=== PATIENT | male | born 1980 | race Caucasian/White ===

== ENCOUNTER 2016-05-28 23:00 | Inpatient (IN) | payer SELFPAY ==
[~2016-05-28] VITALS: Ht 172.7 cm; Wt 66.0 kg
[2016-05-29] VITALS (13 sets, daily range): BP systolic 94–148; BP diastolic 53–99
--- NOTE | 2016-05-29 00:10 | ED CLINICAL REPORT ---
Clinical Report - Physicians/Mid Levels [facility] [address] [place] [address] 05/28/2016 23:03 Patient: RAIZA OROZCO Time Seen: 2305. Arrived- By private vehicle. Historian- patient. HISTORY OF PRESENT ILLNESS Chief Complaint: VOMITING. This started past several days and is still present and worsening. It was abrupt in onset and has been constant but is not gone now. The patient has had nausea and diarrhea. He has had severe vomiting (clear or what he had drank/eaten). The vomiting has occurred numerous times. No black stools, bloody stools, constipation or known contact with a sick individual. The illness is described as moderate. Similar symptoms previously: Several times. Recent medical care: Not recently seen/assessed. REVIEW OF SYSTEMS No fever, chest pain, difficulty breathing or skin rash. All systems otherwise negative, except as recorded above. PAST HISTORY See nurses notes. Medications: None. Allergies: No Known Drug Allergy. SOCIAL HISTORY Smoker- current status unknown. Heavy alcohol use. No drug use. No recent travel. Is a local resident. ADDITIONAL NOTES The nursing notes have been reviewed. PHYSICAL EXAM Vital Signs: 05/28/2016 23:08 BP: 145/86. HR: 72. RR: 24. O2 saturation: 100%. Temp: 98.5 F. Oxygen saturation normal. Appearance: Alert. Oriented X3. Patient in mild distress. Eyes: Pupils equal, round and reactive to light. Eyes normal inspection. ENT: Ears normal. Nose normal. Pharynx normal. Neck: Normal inspection. Neck supple. CVS: Normal heart rate and rhythm. Heart sounds normal. Pulses normal. Respiratory: No respiratory distress. Breath sounds normal. No rales, rhonchi or wheezes. Abdomen: Soft and nontender. Bowel sounds normal. Skin: Skin warm and dry. Normal skin color. No rash. Normal skin turgor. Extremities: Extremities exhibit normal ROM. No lower extremity edema. Neuro: Oriented X 3. No motor deficit. No sensory deficit. (resting tremor with tongue fasciculations mild). LABS, X-RAYS, AND EKG EKG: No acute ischemia. Normal sinus rhythm. Rate: 81. Normal P waves. Normal NIA. Normal QRS complex. Normal axis. Normal ST and T waves. Prolonged QT (492). Prolonged QTc (571). The study has been interpreted contemporaneously. The study has been independently viewed by me. The EKG appears to be a good tracing. Laboratory Tests: CBC w Diff: (JUAN ALBERTO: 05/29/2016 05:25) ( WagRcvd 05/29/2016 06:20) IP Test Result Flag Units (Reference) WHITE BLOOD COUNT 3.1 L K/uL (4.5-11.5) RED BLOOD COUNT 4.85 M/uL (4.50-5.90) HEMOGLOBIN 15.8 gm/dL (13.5-17.5) HEMATOCRIT 46.1 % (41.0-53.0) MEAN CELL VOLUME 95 fL (80-100) MEAN CORPUSCULAR HGB 33 pg (26-34) MEAN CORPUSCULAR HGB CONC 34 g/dL (31-37) RED CELL DISTRIBUTION WIDTH 12.7 % (11.6-14.8) PLATELET COUNT 88 L K/uL (150-400) BMP: (JUAN ALBERTO: 05/29/2016 05:25) ( [facility] Final results Test Result Flag Units (Reference) GLUCOSE 96 mg/dL (70-110) BUN 6 L mg/dL (7-18) CREATININE 1.0 mg/dL (0.6-1.3) Estimated GFR >60 mL/min Estimated GFR- >60 mL/min Note: Persistent reduction over 3 months in eGFR<60 mL/min/1.73 m2 defines CKD. Patients with eGFR values>=60 mL/min/1.73 m2 may also have CKD if evidence ofpersistent proteinuria. Additional information may be foundat www.kidney.org. SODIUM 127 L mmol/L (136-145) POTASSIUM 2.4 *L mmol/L (3.5-5.1) CRITICAL RESULTS CALLEDCalled to LUCIANO 05/29/16 0602Were 2 patient identifiers used? YWas the result read back? Y CHLORIDE 86 L mmol/L (98-107) CARBON DIOXIDE 38 H mmol/L (21-32) CALCIUM 8.2 L mg/dL (8.5-10.1) MAGNESIUM 2.6 H mg/dL (1.8-2.4) PHOSPHORUS 4.2 mg/dL (2.5-4.9) TSH: (JUAN ALBERTO: 05/29/2016 00:01) ( [facility] 05/29/2016 01:20) Final results Test Result Flag Units (Reference) THYROID STIMULATING HORMONE 2.255 uIU/mL (0.34-3.74) UA-Culture if indicated: (JUAN ALBERTO: 05/28/2016 23:42) ( [facility] 05/29/2016 00:06) Final results Test Result Flag Units (Reference) URINE COLOR YELLOW URINE APPEARANCE SLIGHTLY HAZY URINE GLUCOSE NEGATIVE (NEGATIVE) URINE BILIRUBIN NEGATIVE (NEGATIVE) URINE BILIRUBIN ICTOTEST NEGATIVE (NEGATIVE) URINE KETONE 1+ (NEGATIVE) URINE SPECIFIC GRAVITY 1.025 (1.010-1.030) URINE PH 6.0 (5.0-8.0) URINE PROTEIN 2+ (NEGATIVE) URINE UROBILINOGEN 1.0 EU/dL (0.2-1.0) URINE NITRITE NEGATIVE (NEGATIVE) URINE BLOOD TRACE-INTACT (NEGATIVE) URINE LEUK ESTERASE NEGATIVE (NEGATIVE) URINE RBC 1-3 rbc/hpf (0-1) URINE WBC 0-1 wbc/hpf (0-1) URINE EPITHELIAL CELLS NONE SEEN EPI/hpf (0-5) URINE BACTERIA NONE SEEN (NONE SEEN) URINE COMMENT CULT NOT INDICATED HYALINE CAST: 10-15/LPFURINE CULTURES ARE SET-UP BASED ON THE FOLLOWING CRITERIA:POSITIVE NITRITEPOSITIVE LEUKOCYTE ESTERASEGREATER THAN 10 WHITE BLOOD CELLSMODERATE (2+) OR GREATER BACTERIA CBC w Diff: (JUAN ALBERTO: 05/28/2016 23:30) ( [facility] 05/28/2016 23:35) Final results Test Result Flag Units (Reference) WHITE BLOOD COUNT 4.3 L K/uL (4.5-11.5) RED BLOOD COUNT 5.39 M/uL (4.50-5.90) HEMOGLOBIN 17.5 gm/dL (13.5-17.5) HEMATOCRIT 50.6 % (41.0-53.0) MEAN CELL VOLUME 94 fL (80-100) MEAN CORPUSCULAR HGB 33 pg (26-34) MEAN CORPUSCULAR HGB CONC 35 g/dL (31-37) RED CELL DISTRIBUTION WIDTH 12.4 % (11.6-14.8) PLATELET COUNT 91 L K/uL (150-400) NEUTROPHIL % 76.3 H % (50-75) LYMPH % 7.4 L % (25-40) MONO % 15.9 H % (3-14) EOSINOPHIL % 0 % (0-4) BASOPHIL % 0.4 % (0-2) PT with INR: (JUAN ALBERTO: 05/28/2016 23:30) ( [facility] 05/29/2016 00:07) Final results Test Result Flag Units (Reference) INR 0.9 (0.8-1.2) Low Intensity Therapy: INR 1.5-2.0 PT range 18.5-23.1Mod.Intensity Therapy: INR 2.0-3.0 PT range 23.1-31.5High Intensity Therapy: INR 2.5-3.5 PT range 27.4-35.5High Intensity Therapy 2: INR 3.0-4.0 PT range 31.5-39.3 Magnesium: (JUAN ALBERTO: 05/28/2016 23:30) ( [facility] 05/29/2016 00:00) Final results Test Result Flag Units (Reference) MAGNESIUM 1.9 mg/dL (1.8-2.4) Urine Drug Screen: (JUAN ALBERTO: 05/28/2016 23:42) ( [facility] 05/29/2016 00:18) Final results Test Result Flag Units (Reference) AMPHETAMINE/METHAMPHETAMINE NEGATIVE (NEGATIVE) BARBITURATE NEGATIVE (NEGATIVE) BENZODIAZEPINE NEGATIVE (NEGATIVE) CANNABINOID POSITIVE H (NEGATIVE) COCAINE NEGATIVE (NEGATIVE) ECSTASY NEGATIVE (NEGATIVE) METHADONE NEGATIVE (NEGATIVE) OPIATE NEGATIVE (NEGATIVE) The urine drug screen is a qualitative screening test fordrug overdose and abuse. All screen results should beconsidered as presumptive.Drugs screened for are as follows:BenzodiazepinesCocaineAmphetamines/MetamphetaminesTHC (Tetrahydrocannabinol)OpiatesBarbituratesEcstasyMethadonePositive results are unconfirmed. For confirmation, notifythe lab for the specimen to be sent to the reference lab.All confirmations must be performed by a differentmethodology.The ingestion of natural herbal and plant productscontaining Ephedra/Ephedra metabolites can produce in urineone or more substances capable of cross reacting withamphetamine/methamphetamine immunoassays. These testsprovide a preliminary result only. A more specificalternative chemical method must be used to obtain aconfirmed analytical result. CMP: (JUAN ALBERTO: 05/28/2016 23:30) ( MsgRcvd 05/28/2016 23:59) Final results Test Result Flag Units (Reference) GLUCOSE 129 H mg/dL (70-110) BUN 7 mg/dL (7-18) CREATININE 1.2 mg/dL (0.6-1.3) Estimated GFR >60 mL/min Estimated GFR- >60 mL/min Note: Persistent reduction over 3 months in eGFR<60 mL/min/1.73 m2 defines CKD. Patients with eGFR values>=60 mL/min/1.73 m2 may also have CKD if evidence ofpersistent proteinuria. Additional information may be foundat www.kidney.org. SODIUM 123 L mmol/L (136-145) POTASSIUM 2.2 *L mmol/L (3.5-5.1) CRITICAL RESULTS CALLEDCalled to ANGELINA 05/28/16 2359Were 2 patient identifiers used? YWas the result read back? Y CHLORIDE 75 L mmol/L (98-107) CARBON DIOXIDE 34 H mmol/L (21-32) CALCIUM 9.3 mg/dL (8.5-10.1) TOTAL PROTEIN 7.5 g/dL (6.4-8.2) ALBUMIN 4.1 g/dL (3.3-5.0) BILIRUBIN, TOTAL 0.9 mg/dL (0.0-1.0) ALKALINE PHOSPHATASE 150 H U/L (46-116) AST (SGOT) 112 H U/L (15-37) ALT (SGPT) 105 H U/L (12-78) LIPASE 200 U/L (73-393) . PROGRESS AND PROCEDURES Course of Care: the patient is a pleasant 36-year-old male with past medical history significant for substance abuseof alcoholwith alcohol withdrawal seizures presenting for evaluation of nausea and vomiting. In discussion with the patient, the nausea vomiting has been off and on but particularly worse over the past several days. Patient also reports that he had had similar episodes in the past. In further discussion with the patient the symptoms have actually been going on for the past 3 weeks however started to become significantly more worse over the past several days. The patient will be evaluated at this time for alcoholic gastritis or other metabolic derangements as a result of the patient'salcohol consumption. Differential diagnosis at this time includes alcoholic gastritis, hepatitis,or pancreatitis. Patient is agreeable to the treatment plan. Nausea medication and pain medication of been provided. Abdomen is soft and otherwise nontender. Do not feel imaging is indicated at this time. No evidence of acute GI bleed. Workup is remarkable for significant electrolyte abnormalities. Patient is likely having significantvomitingsecondary to alcohol. Patient's electrosol will be replenishedwhile here in the emergency department. EKG is noted to have daily prolongation. Magnesium has been given an ordered after the EKG was evaluated. Patient is agreeable to admission to the hospital. Valium is also been provided for symptoms of alcohol withdrawal. I spoken to the hospitalist Waylon at the patient. Patient to be admitted to telemetry. No further recommendations. No signs of delirium tremens. Patient is talking and in good spirits and smiling. Patient is nontoxic. Patient reports feeling significantly better after electrolytes, fluids and Valium have been given. Patient does not need ICU level of care. Patient is agreeable to the treatment plan. Discussed with the patient isworkupand diagnosis as well as plan of care. All questions have been answered. Critical care performed (40 minutes). Time is exclusive of separately billable procedures. Time includes: direct patient care, patient reassessment, coordination of patient care, interpretation of data (laboratory data), review of patient's medical records, medical consultation and documentation of patient care. CLINICAL IMPRESSION hypokalemia QT prolongation hyponatremia hypochloremia alcohol withdrawal. (Electronically signed by Emmanuel Bee Dr. 05/29/2016 7:35)
--- NOTE | 2016-05-29 00:10 | ED ORDER SUMMARY ---
..... Patient: RAIZA OROZCO OrderSheet [facility] VisitID: [id number] [address] [place] [address] 36y, M Registration Date/Time: 05/28/2016 ORDER SHEET Weight: 72.5 kg Allergies: No Known Drug Allergy GENERAL ORDERS: Formwork Carpenter (Continuous) (abdo pain hx of seizures) (23:18 05/28/2016 Juan Pablo Thomas) (Ack 23:20 SRetori) (23:22 EInderbitzen R.N.) CBC w Diff Urgent (23:19 05/28/2016 Juan Pablo Thomas) (Ack 23:20 SRetori) (23:27 EInderbitzen R.N.) CMP Urgent (23:19 05/28/2016 Juan Pablo Thomas) (Ack 23:20 SRetori) (23:27 EInderbitzen R.N.) UA-Culture if indicated Urgent (23:19 05/28/2016 Juan Pablo Thomas) (Ack 23:20 SRetori) (23:44 EInderbitzen R.N.) PT with INR Urgent (23:19 05/28/2016 Juan Pablo Thomas) (Ack 23:20 SReyazminond) (23:27 EInderbitzen R.N.) Lipase Urgent (23:19 05/28/2016 Juan Pablo Thomas) (Ack 23:20 SRetori) (23:27 EInderbitzen R.N.) Urine Drug Screen Urgent (23:19 05/28/2016 Juan Pablo Thomas) (Ack 23:20 SRetori) (23:44 EInderbitzen R.N.) Pulse oximeter (23:19 05/28/2016 Juan Pablo Thomas) (Ack 23:20 SRetori) (23:22 EInderbitzen R.N.) EKG - ER Stat (23:22 05/28/2016 Strat[facility]ouse ER Tech1 verbal order read back to Juan Pablo Thomas) (23:22 NHouse ER Tech1) Magnesium Urgent (23:27 05/28/2016 Juan Pablo Thomas) (Ack 23:35 SReyazimnond) (23:35 SRedmond) MEDICATION ORDERS: GI Cocktail WHITE PO 30 mL (NOW) (23:19 05/28/2016 Juan Pablo Thomas) (23:45 EInderbitzen R.N.) Nicoderm Topical 21 mg (NOW) (00:38 05/29/2016 Juan Pablo Thomas) (0:52 EInderbitzen R.N.) IV FLUIDS: IV NS : initial bolus 1000 mL (1000 mL/hr), then none - for X1 (NOW) (23:18 05/28/2016 Juan Pablo Thomas) (23:37 EInderbitzen R.N.) Zofran IV 4 mg (NOW) (23:27 05/28/2016 Juan Pablo Thomas) (23:37 EInderbitzen R.N.) Magnesium Sulfate IV 2 gm/50mL (HIGH ALERT MEDICATION, NOW, over 1 hour) (23:27 05/28/2016 Juan Pablo Thomas) (23:45 EInderbitzen R.N.) Potassium Chloride IV 20 meq/100mL (HIGH ALERT MEDICATION, NOW, Run no faster than 10 mEq/hr) (00:01 05/29/2016 Juan Pablo Thomas) (0:09 EInderbitzen R.N.) Valium IV 10 mg (HIGH ALERT MEDICATION, NOW) (00:03 05/29/2016 Juan Pablo Thomas) (0:09 EInderbitzen R.N.) IV NS : initial bolus none -, then 50 mL/hr for X1 (NOW) (01:01 05/29/2016 EInderwolf R.N. verbal order read back to Juan Pablo Thomas) (1:03 EInderbitzen R.N.) ORDER SHEET NOTES: [Electronically signed by Mei Marcano R.N. (03:03 05/29/2016)] [Electronically signed by Emmanuel Bee Dr. (07:35 05/29/2016)] [Electronically locked/signed by Mei Marcano R.N. (03:03 05/29/2016)]
--- NOTE | 2016-05-29 00:10 | ED NURSING NOTES ---
Clinical Report - Nurses [facility] [address] [place] [address] 05/28/2016 23:03 Patient: RAIZA OROZCO TRIAGE Triage time 23:May 28 2016. Acuity: LEVEL 3. Chief Complaint: CHEST PAIN, NAUSEA and VOMITING (palpitation). 23:08 05/28/16. SEPSIS SCREEN: Sepsis Screen. Negative (no infection suspected/documented). SAM COMA SCORE: Hamilton Coma Scale: 15- eyes open spontaneously (4); best verbal response- oriented x 4 (5); best motor response- obeys commands (6). --23:16 Mei Marcano R.N. 23:08 05/28/16. BP: 145/86. HR: 72. RR: 24. O2 saturation: 100%. Temp: 98.5 F. Pain level now 10. --23:16 Mei Marcano R.N. 23:22 05/28/16. --23:22 Mei Marcano R.N. 23:56 05/28/16. --23:56 Mei Marcano R.N. Weight: 72.5 kg. Height/Length: 67 inches. BMI: 25.1. --23:08 Mei Marcano R.N. Medications None. --23:10 Mei Marcano R.N. Medication/allergy information source: the patient. --23:16 Mei Marcano R.N. Allergies No Known Drug Allergy. --23:11 Mei Marcano R.N. History Arrived by private vehicle. Historian: patient. Accompanied by family. 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 Onset. (2 months). ( states symptoms ongoing for the last 2 months, states vomits every day. no noticeable weight loss reported. intermittent palpitations, heart jumping out of chest.). No fever, weakness, cough, difficulty breathing or skin rash. Denies muscle aches. 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 PAST MEDICAL HX: Has not received pneumonia vaccine or seasonal influenza immunization. SOCIAL HX: Heavy tobacco smoker (cigarette)- less than 1 pack per day. Regular alcohol use; consumes two beers. History of drug use: marijuana. Recently used drugs just prior to arrival. No infectious disease exposure. ABUSE ASSESSMENT: No report of abuse. FALL RISK ASSESSMENT: Fall risk assessment completed. No fall risk identified. NUTRITIONAL RISK ASSESSMENT: The nutritional risk assessment revealed no deficiencies. FUNCTIONAL ASSESSMENT: Functional assessment: no impairments noted. LEARNING NEEDS ASSESSMENT: The learning needs assessment revealed no barriers. SKIN INTEGRITY ASSESSMENT: Skin integrity risk assessment completed. No skin integrity risk identified. --23:16 Mei Marcano R.N. ( Pts girlfriend reports he has never had a stroke. He does drink over a case of beer a day, he drinks one, then vomits, and repeats this process. He did have a seizure related to alcohol withdrawl and fell in a puddle of water, aspirating. He was in ICU on life support for 4 days.). --23:22 Mei Marcano R.N. SOCIAL HX: Heavy alcohol use; consumes a large amount of beer. --23:56 Mei Marcano R.N. PROBLEMS: Back Injury. Back Pain. --23:11 Mei Marcano R.N. Seizure. Alcoholism. --23:20 Mei Marcano R.N. The following entry was modified by Mei Marcano R.N., 23:20 Reason - pt reported incorrectly <<STRICKEN ENTRY-- CVA - Cerebrovascular Accident. --23:15 Mei Marcano R.N. --END STRIKE>>. ADDITIONAL SURGERIES: Back Surgery. --23:11 Mei Marcano R.N. Interventions ID band on patient. --23:16 Mei Marcano R.N. PHYSICAL ASSESSMENT 23:17 05/28/16. Ambulatory to room. GENERAL / NEURO / PSYCH: Alert. Oriented X 4. Appears anxious. HEENT: Pupils equal, round and reactive to light. No facial asymmetry noted. Mucous membranes are pink. RESPIRATORY: Breath sounds within normal limits. CVS: Normal sinus rhythm noted. Capillary refill less than 2 seconds. Pulses within normal limits. GI / : Abdomen soft and nontender and normal bowel sounds. SKIN: Skin intact. Skin is warm and dry. Normal skin turgor. --23:17 Mei Marcano R.N. NURSING PROGRESS NOTES 23:17 05/28/16. Cardiac rhythm: normal sinus rhythm. The initial plan of care for this patient includes an assessment with efforts to address the patient's anxiety; the presence of pain. This plan of care was discussed with the patient. teletypesetter monitor, pulse oximeter and NIBP monitor placed on patient; monitoring analyst- Lead II; monitor alarms on. Patient gowned. Reassurance given. Patient identifiers checked. Call light placed in reach. Side rails up x 1. Bed placed in lowest position. Brakes of bed on. Patient ready for evaluation. --23:17 Mei Marcano R.N. 23:25 05/28/2016 Site #1 started via IV in the right antecubital space with an 20g angiocath, with aseptic technique and good blood return; one attempt. Blood drawn: rainbow set. Labeled in the presence of the patient and sent to the lab. Saline lock flushed with 10 mL saline. --23:28 Mei Marcano R.N. 23:30 05/28/2016 Started bag #1 1000 mL IV Fluids IV NS (Saline); at 1000 mL/hr over 1 hour(s) via site #1. Allergies verified and confirmed 5 rights. IV patency established. IV site checked: no pain, redness, or swelling. IV flushed thoroughly pre- and post-medication administration. --23:37 Mei Marcano R.N. 23:31 05/28/2016 Zofran (Ondansetron HCl) IVP 4 mg given over 1 minute(s) via site #1. Allergies verified and confirmed 5 rights. IV patency established. IV site checked: no pain, redness, or swelling. IV flushed thoroughly pre- and post-medication administration. IVP given by RN. --23:37 Mei Marcano R.N. EKG time: (2321). EKG was ordered, performed by a tech and shown to the ED physician. --23:40 Saray Garcia ER Tech1 23:40 05/28/16. Patient ID band checked for patient name and birthdate: patient confirmed. Instructions provided to collect clean catch urine and patient verbalized understanding. Clean catch urine collected with return of luís-colored clear urine; sample sent to lab for urinalysis and drug screen. Specimen labeled in the presence of the patient. --23:50 Mei Marcano R.N. 23:45 05/28/2016 GI COCKTAIL WHITE (Simethicone) PO Oral Suspension 30 mL given. Allergies verified and confirmed 5 rights. --23:45 Mei Marcano R.N. 23:45 05/28/2016 Magnesium Sulfate (Magnesium Sulfate in D5W) IVP 2 gm given over 1 hour(s) via site #1. Allergies verified and confirmed 5 rights. IV patency established. IV site checked: no pain, redness, or swelling. IV flushed thoroughly pre- and post-medication administration. IVP given by RN. --23:45 Mei Marcano R.N. 23:59 05/28/16. Critical value relayed to ED by keyla. Critical value received by Liz. Vergara: 2.2. Critical value read back. Verified patient ID. --23:59 Mei Marcano R.N. 00:05 05/29/2016 Valium (Diazepam) IVP 10 mg given over 2 minute(s) via site #1. Allergies verified, confirmed 5 rights and sedative warning given to the patient. IV patency established. IV site checked: no pain, redness, or swelling. IV flushed thoroughly pre- and post-medication administration. IVP given by RN. --00:09 Mei Marcano R.N. 00:09 05/29/2016 Started 20 meq of Potassium Chloride (Potassium Chloride) IVPB in bag #1 100 mL; at 50 mL/hr over 2 hour(s) via site #1 via IV pump. Allergies verified and confirmed 5 rights. IV patency established. IV site checked: no pain, redness, or swelling. IV flushed thoroughly pre- and post-medication administration. --00:09 Mei Marcano R.N. 00:11 05/29/16. BP: 128/84. HR: 83. RR: 18. O2 saturation: 96%. Pain level now 7/10. --00:11 Mei Marcano R.NBessie 00:11 05/29/16. Cardiac rhythm: normal sinus rhythm. --00:11 Mei Marcano R.NBessie 00:30 05/29/2016 IV Fluids IV NS Discontinued: bag #1 completed. Total amount infused: 1000 mL. IV patency established. IV site checked: no pain, redness, or swelling. IV flushed thoroughly. --00:35 Mei Marcano R.NBessie 00:52 05/29/2016 NICODERM Topical Patch/Pad 21 mg. Applied to the right upper arm. Allergies verified and confirmed 5 rights. --00:52 Mei Marcano R.NBessie 00:53 05/29/2016 Potassium Chloride IVPB via IV site #1 Rate Changed: decreased to 25 mL/hr via IV pump. IV patency established. IV site checked: no pain, redness, or swelling. IV flushed thoroughly. Confirmed 5 Rights. --00:53 Mei Marcano R.N. 01:00 05/29/2016 Started bag #1 1000 mL IV Fluids IV NS (Saline); at 50 mL/hr over 20 hour(s) via site #1. Allergies verified and confirmed 5 rights. IV patency established. IV site checked: no pain, redness, or swelling. IV flushed thoroughly pre- and post-medication administration. --01:03 Mei Marcano R.NBessie 01:13 05/29/16. Cardiac rhythm: normal sinus rhythm. Reassessment after medication administered. He is calm and resting quietly. Overall patient status is improved- he states feels better. RESPIRATORY: No respiratory distress. Breath sounds normal. CVS: Normal sinus rhythm noted. SKIN: Skin is warm and dry. Skin color within normal limits. --01:13 Mei Marcano R.NBessie 01:13 05/29/16. BP: 135/99. HR: 74. RR: 18. O2 saturation: 97%. Pain level now 06/27. --01:13 Mei Marcano R.N. 01:13 05/29/16. --01:13 Mei Mracano R.N. Intake & Output 23:40 05/28/16. Urine: 20 mL. --23:49 Mei Marcano R.NBessie 01:13 05/29/16. IV fluids: 1050. --01:13 Mei Marcano R.N. DISPOSITION / DISCHARGE 01:35 05/29/16. Condition at departure: improved and stable. The goals identified in the patient's plan of care were met. Admitted to Acute Care. Report was given to a nurse via a phone call. Report included patient's care, treatment, medications, reviewed medication reconcilliation, and condition (including any recent changes or anticipated changes). All questions were answered. (HIEN Mejia). --01:35 Mei Marcano R.N. 01:58 05/29/2016 IV Fluids IV NS Continued: at the rate of 50 mL/hr. 800 mL remaining. IV patency established. IV site checked: no pain, redness, or swelling. IV flushed thoroughly. --01:58 Mei Marcano R.N. 01:58 05/29/2016 Potassium Chloride IVPB Continued: at the rate of 25 mL/hr. 35 mL remaining. IV patency established. IV site checked: no pain, redness, or swelling. IV flushed thoroughly. --01:58 Mei Marcano R.N. 01:59 05/29/2016 Site #[address] upon admission; patent. --01:59 Mei Marcano R.N. Departure time: 01:59 May 29 2016. Condition at departure: improved and stable. The goals identified in the patient's plan of care were met. --01:59 Mei Marcano R.N. 01:12 05/29/16. BP: 135/99. HR: 74. RR: 18. O2 saturation: 97%. Pain level now 06/27. 00:10 05/29/16. BP: 128/84. HR: 83. RR: 18. O2 saturation: 96%. Pain level now 09/26. 23:08 05/28/16. BP: 145/86. HR: 72. RR: 24. O2 saturation: 100%. Temp: 98.5 F. Pain level now 10/27. --01:59 Mei Marcano R.N. Locked/Released at 05/29/2016 3:03 by Mei Marcano R.N.
--- NOTE | 2016-05-29 00:10 | ED ORDER SUMMARY ---
..... Patient: RAIZA OROZCO OrderSheet [facility] VisitID: [id number] [address] [place] [address] 36y, M Registration Date/Time: 05/28/2016 ORDER SHEET Weight: 72.5 kg Allergies: No Known Drug Allergy GENERAL ORDERS: Personnel Coordinator (Continuous) (abdo pain hx of seizures) (23:18 05/28/2016 Juan Pablo Thomas) (Ack 23:20 SRetori) (23:22 EInderbitzen R.N.) CBC w Diff Urgent (23:19 05/28/2016 Juan Pablo Thomas) (Ack 23:20 SRetori) (23:27 EInderbitzen R.N.) CMP Urgent (23:19 05/28/2016 Juan Pablo Thomas) (Ack 23:20 SRetori) (23:27 EInderbitzen R.N.) UA-Culture if indicated Urgent (23:19 05/28/2016 Juan Pablo Thomas) (Ack 23:20 SRetori) (23:44 EInderbitzen R.N.) PT with INR Urgent (23:19 05/28/2016 Juan Pablo Thomas) (Ack 23:20 SReyazminond) (23:27 EInderbitzen R.N.) Lipase Urgent (23:19 05/28/2016 Juan Pablo Thomas) (Ack 23:20 SRetori) (23:27 EInderbitzen R.N.) Urine Drug Screen Urgent (23:19 05/28/2016 Juan Pablo Thomas) (Ack 23:20 SRetori) (23:44 EInderbitzen R.N.) Pulse oximeter (23:19 05/28/2016 Juan Pablo Thomas) (Ack 23:20 SRetori) (23:22 EInderbitzen R.N.) EKG - ER Stat (23:22 05/28/2016 [place] ER Tech1 verbal order read back to Juan Pablo Thomas) (23:22 NHouse ER Tech1) Magnesium Urgent (23:27 05/28/2016 Juan Pablo Thomas) (Ack 23:35 SReyazminond) (23:35 SRedmond) MEDICATION ORDERS: GI Cocktail WHITE PO 30 mL (NOW) (23:19 05/28/2016 Juan Pablo Thomas) (23:45 EInderbitzen R.N.) Nicoderm Topical 21 mg (NOW) (00:38 05/29/2016 Juan Pablo Thomas) (0:52 EInderbitzen R.N.) IV FLUIDS: IV NS : initial bolus 1000 mL (1000 mL/hr), then none - for X1 (NOW) (23:18 05/28/2016 Juan Pablo Thomas) (23:37 EInderbitzen R.N.) Zofran IV 4 mg (NOW) (23:27 05/28/2016 Juan Pablo Thomas) (23:37 EInderbitzen R.N.) Magnesium Sulfate IV 2 gm/50mL (HIGH ALERT MEDICATION, NOW, over 1 hour) (23:27 05/28/2016 Juan Pablo Thomas) (23:45 EInderbitzen R.N.) Potassium Chloride IV 20 meq/100mL (HIGH ALERT MEDICATION, NOW, Run no faster than 10 mEq/hr) (00:01 05/29/2016 Juan Pablo Thomas) (0:09 EInderbitzen R.N.) Valium IV 10 mg (HIGH ALERT MEDICATION, NOW) (00:03 05/29/2016 Juan Pablo Thomas) (0:09 EInderbitzen R.N.) IV NS : initial bolus none -, then 50 mL/hr for X1 (NOW) (01:01 05/29/2016 EInderwolf R.N. verbal order read back to Juan Pablo Thomas) (1:03 EInderbitzen R.N.) ORDER SHEET NOTES: [Electronically signed by Mei Marcano R.N. (03:03 05/29/2016)] [Electronically signed by Emmanuel Bee Dr. (07:35 05/29/2016)] [Electronically locked/signed by Mei Marcano R.N. (03:03 05/29/2016)]
--- NOTE | 2016-05-29 03:35 | HISTORY AND PHYSICAL ---
ADMITTED: 05/29/2016 HISTORY OF PRESENT ILLNESS: The patient is a 36-year-old male with chief complaint of abdominal pain. The patient has been having intermittent abdominal pain for several weeks. The pain is in the epigastric area. This is also associated with intermittent episodes of vomiting. The patient apparently has been vomiting daily for about a year. In the past few weeks, he has been vomiting more frequently, up to about 15-20 times a day, sometimes the vomitus is clear or previously ingested food, sometimes it is blood streaked or frankly dark bloody and brownish in color. He also has had loose stools more than a week ago, but that has resolved. He has not he has not been able to maintain adequate p.o. intake of both solids and liquids. He has a history of chronic ETOH dependence and allegedly he only has been drinking about 2-3 beers a day. His girlfriend, however, thinks that he has been drinking more than this. His last drink today was today. He had about a beer. He has a history of seizures about a year ago when he was withdrawing from alcohol. The patient thinks that about 2 days ago he had a brief seizure, but this was lasting for about 20 seconds. This was not witnessed. He did not have any loss of consciousness. He reports some dizziness and lightheadedness, but has not had any syncopal episode. MEDICAL/SURGICAL HISTORY: Past medical history is pertinent for a history of chronic ETOH dependence and history of alcohol withdrawal seizures. He was in [facility] for about 4 days and was intubated after he had seizures. This was a year ago. 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 Prior surgeries include vasectomy. He also has a history of nicotine dependence. MEDICATIONS: 1. Gabapentin 600 t.i.d., but he has not been using the medication because of lack of insurance. ALLERGIES: 1. NONE. SOCIAL HISTORY: Smoker, about 1-2 packs per day and chronic ETOH use. He drank heavily in the past but has been trying to cut down. He also uses marijuana daily, mostly recreational. 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 FAMILY HISTORY: Liver cancer in the brother, lung cancer in the father. REVIEW OF SYSTEMS: He denies having any chest pain or palpitation. No cough. No hemoptysis. He has had some nausea, vomiting, and diarrhea. He has had some hematemesis. He has chronic back pain and chronic numbness on the left leg with sciatica. No urinary symptoms noted. PHYSICAL EXAMINATION: GENERAL: Today shows a well-developed, fairly nourished male. VITAL SIGNS: Blood pressure 145/86, heart rate 72, respirations 24, O2 saturation 100% on room air, temperature is 98.5, weight is 72.5 kg, height is 67 inches. HEENT: He is normocephalic with pink conjunctivae. He is not icteric. Pupils are reactive. Dry oral mucosa. No JVD. No bruits. He has decreased skin turgor. LUNGS: Clear. No rales, no wheezes, no rhonchi. CARDIOVASCULAR: Regular rate and rhythm. S1, S2 normal. No S3, no S4, no gallops , no murmurs. ABDOMEN: Soft. Epigastric tenderness noted. No guarding. No rebound tenderness. No right upper quadrant tenderness. No bruits. BACK: No CVA tenderness. EXTREMITIES: No edema or cyanosis. Peripheral pulses are palpable. SKIN: Shows some petechiae on the upper chest area. NEUROLOGIC: He has some mild tremors of the upper extremities. He is alert and oriented to place, person, and time. He is able to follow instructions. He has good insight. No lateralizing signs noted. LAB/IMAGING: His labs show a hemoglobin of 17.5, hematocrit 50.6, WBC of 4.3, platelets 91, neutrophils 76.3. Sodium is 123, potassium 2.2, chloride 75, CO2 of 34, BUN of 7, creatinine 1.2, glucose 129, magnesium 1.9, total protein 7.5, albumin 4.1, alkaline phosphatase 150, AST 112, ALT 105. Lipase 200. Urine drug screen shows positive for THC. His INR is 4.9. UA shows a specific gravity 1.025, RBC 1-3, WBC 0 to 1. IMPRESSION: 1. Intravascular volume depletion with hyponatremia, hypochloremia, and hypokalemia 2. Chronic ethanol dependence 3. Chronic nicotine dependence 4. Transaminitis, probably secondary to chronic alcohol use 5. Thrombocytopenia, probably secondary to chronic alcohol use PLAN: Admit the patient to telemetry. We will hydrate the patient with normal saline. We will try to correct the sodium slowly. We will also give potassium replacements. We will place the patient on alcohol withdrawal protocol. We will resume Gabapentin 600 t.i.d. as this may help with his alcohol withdrawal. We will place on Protonix for stress gastritis prophylaxis. Currently his hematocrit is normal, but this is probably hemoconcentrated. I expect his hematocrit to go down with hydration. He has a history of hematemesis and may have underlying gastritis or peptic ulcer disease. He may need an EGD prior to discharge. I will also check Hemoccult in his stools. For his nicotine dependence, we will place on a nicotine patch. Due to his thrombocytopenia, we will not place any pharmacologic prophylaxis for deep venous thrombosis prophylaxis. We will place on sequential compression devices. Plan of care was discussed with the patient. He agreed and verbalized understanding.
--- NOTE | 2016-05-29 07:36 | ED MAR SUMMARY ---
..... Medication Administration Record [facility] [address] [place] [address] Patient: RAIZA OROZCO Visit ID: [id number] 36y, M Weight: 72.5 kg Height/Length: 67 in BMI: 25.1 ALLERGIES: No Known Drug Allergy Start 23:05/28/2016 Mei Marcano R.N., Stop 00:05/29/2016 Mei Marcano R.N. Medication Administered: IV NS (SALINE), Dose: IV Fluids over 1 hour(s), Rate: 1000 mL/hr, Dispensed: 1000 mL bag, Site: #1 right AC. Medication Ordered: IV NS : initial bolus 1000 mL (1000 mL/hr), then none - for X1 (NOW). Given 23:05/28/2016 Mei Marcano R.N. Medication Administered: ZOFRAN [IVP] (ONDANSETRON HCL), Dose: 4 mg IVP over 1 minute(s), Site: #1 right AC. Medication Ordered: Zofran IV 4 mg (NOW). Given :05/28/2016 Mei Marcano R.N. Medication Administered: MAGNESIUM SULFATE [IVP] (MAGNESIUM SULFATE IN D5W), Dose: 2 gm IVP over 1 hour(s), Site: #1 right AC. Medication Ordered: Magnesium Sulfate IV 2 gm/50mL (HIGH ALERT MEDICATION, NOW, over 1 hour). Given :05/28/2016 Mei Marcano R.N. Medication Administered: GI COCKTAIL WHITE [PO] (SIMETHICONE), Dose: 30 mL Oral Suspension PO. Medication Ordered: GI Cocktail WHITE PO 30 mL (NOW). Given 00:05/29/2016 Mei Marcano R.N. Medication Administered: VALIUM [IVP] (DIAZEPAM), Dose: 10 mg IVP over 2 minute(s), Site: #1 right AC. Medication Ordered: Valium IV 10 mg (HIGH ALERT MEDICATION, NOW). Start 00:09 05/29/2016 Mei Marcano R.N., Continued Upon Disposition 01:58 05/29/2016 Mei Marcano R.N. Medication Administered: POTASSIUM CHLORIDE [IVPB] (POTASSIUM CHLORIDE), Dose: 20 meq IVPB over 2 hour(s), Rate: 50 mL/hr, Dispensed: 100 mL bag, Site: #1 right AC. Medication Ordered: Potassium Chloride IV 20 meq/100mL (HIGH ALERT MEDICATION, NOW, Run no faster than 10 mEq/hr). Given 00:52 05/29/2016 Mei Marcano R.N. Medication Administered: NICODERM [TOPICAL], Dose: 21 mg Patch/Pad Topical. Medication Ordered: Nicoderm Topical 21 mg (NOW). Start 01:00 05/29/2016 Mei Marcano R.N., Continued Upon Disposition 01:58 05/29/2016 Mei Marcano R.N. Medication Administered: IV NS (SALINE), Dose: IV Fluids over 20 hour(s), Rate: 50 mL/hr, Dispensed: 1000 mL bag, Site: #1 right AC. Medication Ordered: IV NS : initial bolus none -, then 50 mL/hr for X1 (NOW).
--- NOTE | 2016-05-29 07:36 | ED DISCHARGE INSTRUCTIONS ---
Patient: RAIZA OROZCO General Instructions [facility] VisitID: [id number] [address] [place] [address] 36y, M Registration Date/Time: 05/28/2016 hypokalemia QT prolongation hyponatremia hypochloremia alcohol withdrawal. (Electronically signed by Emmanuel Bee Dr. 05/29/2016 7:35)
--- NOTE | 2016-05-29 07:36 | ED MED RECONCILIATION SUMMARY ---
Patient: RAIZA OROZCO Medication Reconciliation Report [facility] VisitID: [id number] [address] [place] [address] 36y, M Registration Date/Time: 05/28/2016 Weight: 72.5 kg Height/Length: 67 in. BMI: 25.1 ALLERGIES: No Known Drug Allergy The patient's Home Medications are listed below: NONE. The source(s) of the original Home Medication information: patient The following Medications were given to the patient in the Emergency Department: IV NS IV Fluids bolus 0, then 1000 mL/hr, administered: 05/28/2016 11:30:00 PM Zofran [IVP] IVP 4 mg, administered: 05/28/2016 11:31:00 PM GI COCKTAIL WHITE [PO] PO 30 mL, administered: 05/28/2016 11:45:00 PM Magnesium Sulfate [IVP] IVP 2 gm, administered: 05/28/2016 11:45:00 PM Valium [IVP] IVP 10 mg, administered: 05/29/2016 12:05:00 AM Potassium Chloride [IVPB] IVPB bolus 0, then 20 meq 50 mL/hr, administered: 05/29/2016 12:09:00 AM NICODERM [TOPICAL] Topical 21 mg, administered: 05/29/2016 12:52:00 AM IV NS IV Fluids bolus 0, then 50 mL/hr, administered: 05/29/2016 1:00:00 AM The following Medications were prescribed to the patient: None.
--- NOTE | 2016-05-29 07:36 | ED MAR SUMMARY ---
..... Medication Administration Record [facility] [address] [place] [address] Patient: RAIZA OROZCO Visit ID: [id number] 36y, M Weight: 72.5 kg Height/Length: 67 in BMI: 25.1 ALLERGIES: No Known Drug Allergy Start 23:05/28/2016 Mei Marcano R.N., Stop 00:05/29/2016 Mei Marcano R.N. Medication Administered: IV NS (SALINE), Dose: IV Fluids over 1 hour(s), Rate: 1000 mL/hr, Dispensed: 1000 mL bag, Site: #1 right AC. Medication Ordered: IV NS : initial bolus 1000 mL (1000 mL/hr), then none - for X1 (NOW). Given 23:05/28/2016 Mei Marcano R.N. Medication Administered: ZOFRAN [IVP] (ONDANSETRON HCL), Dose: 4 mg IVP over 1 minute(s), Site: #1 right AC. Medication Ordered: Zofran IV 4 mg (NOW). Given :05/28/2016 Mei Marcano R.N. Medication Administered: MAGNESIUM SULFATE [IVP] (MAGNESIUM SULFATE IN D5W), Dose: 2 gm IVP over 1 hour(s), Site: #1 right AC. Medication Ordered: Magnesium Sulfate IV 2 gm/50mL (HIGH ALERT MEDICATION, NOW, over 1 hour). Given :05/28/2016 Mei Marcano R.N. Medication Administered: GI COCKTAIL WHITE [PO] (SIMETHICONE), Dose: 30 mL Oral Suspension PO. Medication Ordered: GI Cocktail WHITE PO 30 mL (NOW). Given 00:05/29/2016 eMi Marcano R.N. Medication Administered: VALIUM [IVP] (DIAZEPAM), Dose: 10 mg IVP over 2 minute(s), Site: #1 right AC. Medication Ordered: Valium IV 10 mg (HIGH ALERT MEDICATION, NOW). Start 00:09 05/29/2016 Mei Marcano R.N., Continued Upon Disposition 01:58 05/29/2016 Mei Marcano R.N. Medication Administered: POTASSIUM CHLORIDE [IVPB] (POTASSIUM CHLORIDE), Dose: 20 meq IVPB over 2 hour(s), Rate: 50 mL/hr, Dispensed: 100 mL bag, Site: #1 right AC. Medication Ordered: Potassium Chloride IV 20 meq/100mL (HIGH ALERT MEDICATION, NOW, Run no faster than 10 mEq/hr). Given 00:52 05/29/2016 Mei Marcano R.N. Medication Administered: NICODERM [TOPICAL], Dose: 21 mg Patch/Pad Topical. Medication Ordered: Nicoderm Topical 21 mg (NOW). Start 01:00 05/29/2016 Mei Marcano R.N., Continued Upon Disposition 01:58 05/29/2016 Mei Marcano R.N. Medication Administered: IV NS (SALINE), Dose: IV Fluids over 20 hour(s), Rate: 50 mL/hr, Dispensed: 1000 mL bag, Site: #1 right AC. Medication Ordered: IV NS : initial bolus none -, then 50 mL/hr for X1 (NOW).
--- NOTE | 2016-05-29 07:36 | ED DISCHARGE INSTRUCTIONS ---
Patient: RAIZA OROZCO General Instructions [facility] VisitID: [id number] [address] [place] [address] 36y, M Registration Date/Time: 05/28/2016 hypokalemia QT prolongation hyponatremia hypochloremia alcohol withdrawal. (Electronically signed by Emmanuel Bee Dr. 05/29/2016 7:35)
--- NOTE | 2016-05-29 07:36 | ED MED RECONCILIATION SUMMARY ---
Patient: RAIZA OROZCO Medication Reconciliation Report [facility] VisitID: [id number] [address] [place] [address] 36y, M Registration Date/Time: 05/28/2016 Weight: 72.5 kg Height/Length: 67 in. BMI: 25.1 ALLERGIES: No Known Drug Allergy The patient's Home Medications are listed below: NONE. The source(s) of the original Home Medication information: patient The following Medications were given to the patient in the Emergency Department: IV NS IV Fluids bolus 0, then 1000 mL/hr, administered: 05/28/2016 11:30:00 PM Zofran [IVP] IVP 4 mg, administered: 05/28/2016 11:31:00 PM GI COCKTAIL WHITE [PO] PO 30 mL, administered: 05/28/2016 11:45:00 PM Magnesium Sulfate [IVP] IVP 2 gm, administered: 05/28/2016 11:45:00 PM Valium [IVP] IVP 10 mg, administered: 05/29/2016 12:05:00 AM Potassium Chloride [IVPB] IVPB bolus 0, then 20 meq 50 mL/hr, administered: 05/29/2016 12:09:00 AM NICODERM [TOPICAL] Topical 21 mg, administered: 05/29/2016 12:52:00 AM IV NS IV Fluids bolus 0, then 50 mL/hr, administered: 05/29/2016 1:00:00 AM The following Medications were prescribed to the patient: None.
--- NOTE | 2016-05-29 19:36 | Progress Note ---
Subjective General Patient developed severe DT's this am including severe hallucinations and was not re-orientable despite high doses of lorazepam this am. Patient also with urinary incontinence. Versed 5 mg IV twice given and patient calm and sleeping. Denied chest pain, SOB, cough, abd pain, nausea, vomitting, diarrhea, constipation. Physical Exam Vital Signs / I&Os Vital Signs Date Time Temp Pulse Resp B/P Pulse O2 O2 Flow FiO2 Ox Delivery Rate 05/29 1910 77 19 131/96 100 Room Air 05/29 1811 36.2 77 20 123/89 98 Room Air 05/29 1727 73 18 126/96 99 Room Air 05/29 1610 75 16 131/97 97 Room Air 05/29 1538 75 16 96 05/29 1436 36.1 71 19 124/86 95 Room Air 05/29 1102 37.1 95 22 113/85 96 Nasal 0.0 Cannula 05/29 0942 1.5 05/29 0644 37.1 88 20 126/83 96 Nasal 1.5 Cannula 05/29 0325 37.4 72 20 148/94 94 Nasal 1.5 Cannula 05/29 0230 Nasal 2.0 Cannula General Appearance Alert, Cooperative, No acute distress Lungs Clear to auscultation, Normal air movement Cardiovascular Regular rate and rhythm, Normal S1 and S2, No murmurs, gallops, rubs Abdomen Normal bowel sounds, Soft, No tenderness Extremities No edema Neurological Severe tremors. Assessment and Plan Problem List 1. Alcohol withdrawal Plan Required lorazepam 10 mg IV and versed 10 mg IV over 9 hrs this am. Patient maintained airway, O2 sats, and was monitored on CO2 monitor. Patient transitioned to lorazepam gtt at 1 mg/hr with 2 mg IV boluses. If not controlled, would increase gtt to 1.5 mg/hr. if lorazepam 2 mg IV bolus not successful, would use versed 5 mg IV and repeat with versed 3 mg IV. 2. Hypokalemia Plan Replaced. Recheck in am. 3. Hyponatremia Plan on IVF and increasing slowly. Monitor closely.
[2016-05-30] VITALS (22 sets, daily range): BP systolic 115–153; BP diastolic 85–108
--- NOTE | 2016-05-30 18:46 | Progress Note ---
Subjective General Patient was seen and examined. Patient is still acutely confused and has withdrawal symptoms. Will continue with sedation. Constitutional Denies: Fever, Chills, Sweats, Weakness, Malaise, Other. Respiratory Denies: Cough, Dry, SOB w/exertion, Wheezing, Hemoptysis, Pleuritic Pain, Sputum , Other. Cardiovascular Denies: Chest Pain, Palpitations, Orthopnea, PND, Edema, Light-headedness, Other. Gastrointestinal Denies: Nausea, Vomiting, Abdominal Pain, Diarrhea, Constipation, Melena, Hematochezia, Other. Neurological Confusion. Denies: Weakness, Numbness, Incoordination, Change in speech, Seizures. Physical Exam Vital Signs / I&Os Vital Signs Date Time Temp Pulse Resp B/P Pulse O2 O2 Flow FiO2 Ox Delivery Rate 05/30 1821 65 20 131/91 98 05/30 1702 66 22 122/92 97 05/30 1609 63 22 133/94 96 05/30 1511 51 20 151/99 99 05/30 1404 59 18 134/94 98 Room Air 0.0 05/30 1300 65 18 115/86 98 Room Air 0.0 05/30 1200 76 18 141/107 98 Room Air 0.0 05/30 1100 98.2 78 18 138/100 98 Room Air 05/30 1000 77 18 127/85 98 Room Air 05/30 0900 98.4 80 26 132/96 98 Room Air 0.0 05/30 0700 98.4 82 18 130/98 92 Room Air 0.0 05/30 0605 98.4 70 18 121/88 96 Room Air 0.0 05/30 0500 77 18 128/90 93 05/30 0414 93 18 128/90 98 05/30 0332 107 19 94 05/30 0313 97.9 95 18 129/94 94 05/30 0200 97.9 97 20 140/98 93 Room Air 05/30 0100 89 22 131/94 94 05/30 0100 86 25 97 / 0020 76 20 135/96 97 05/29 2310 76 20 96 05/29 2300 97.5 76 20 137/99 96 Room Air 05/29 2218 97.5 75 20 128/93 95 Room Air 05/29 2100 Room Air 05/29 2100 78 21 123/90 96 Room Air 05/29 2045 80 22 91 03/12 2000 79 21 128/98 92 Room Air 05/29 1910 77 19 131/96 100 Room Air I&O 05/29 0800 05/29 1600 05/30 0000 Intake Total 2580 450 Output Total 099 339 6171 Balance -750 2130 -945 General Appearance Alert, No acute distress HEENT Atraumatic, PERRLA, Moist mucous membranes Lungs Clear to auscultation, Normal air movement Cardiovascular Regular rate and rhythm, Normal S1 and S2, No murmurs, gallops, rubs Abdomen Soft, No tenderness, No guarding, No hepatosplenomegaly Extremities No edema, Normal pulses, No tenderness, Strength = upper ext's, Strength = lower ext's, Yessica's sign negative Skin No Rashes, No Breakdown, No Significant Lesions Neurological Normal speech, Sensation intact, Cranial nerves intact, No lateralizing signs LAB Results Laboratory Tests 05/29 05/30 05/30 2248 0550 1000 Chemistry Plasma Sodium (136 - 145 mmol/L) 139 137 Cancelled Plasma Potassium (3.5 - 5.1 mmol/L) 3.2 3.2 Cancelled Plasma Chloride (98 - 107 mmol/L) 102 100 Cancelled CO2 (Enzymatic) (21 - 32 mmol/L) 30 27 Cancelled BUN (7 - 18 mg/dL) 5 4 Cancelled Creatinine (0.6 - 1.3 mg/dL) 0.8 0.8 Cancelled Est GFR ( Amer) (mL/min) >60 >60 Cancelled Est GFR (Non-Af Amer) (mL/min) >60 >60 Cancelled Glucose (70 - 110 mg/dL) 90 100 Cancelled Plasma Calcium (8.5 - 10.1 mg/dL) 8.2 8.2 Cancelled Plasma Magnesium (1.8 - 2.4 mg/dL) 2.0 Total Bilirubin (0.0 - 1.0 mg/dL) 0.5 Direct Bilirubin (0 - 0.3 mg/dL) 0.2 AST (15 - 37 U/L) 96 ALT (12 - 78 U/L) 81 Alkaline Phosphatase (46 - 116 U/L) 98 Total Protein (6.4 - 8.2 g/dL) 5.6 Albumin (3.3 - 5.0 g/dL) 2.8 Hematology WBC (4.5 - 11.5 K/uL) 3.2 RBC (4.50 - 5.90 M/uL) 4.50 Hgb (13.5 - 17.5 gm/dL) 14.8 Hct (41.0 - 53.0 %) 43.0 MCV (80 - 100 fL) 95 MCH (26 - 34 pg) 33 RDW (11.6 - 14.8 %) 12.7 Neut % (Auto) (50 - 75 %) 64.8 Lymph % (Auto) (25 - 40 %) 18.1 [place] % (Auto) (3 - 14 %) 15.8 Eos % (Auto) (0 - 4 %) 1.3 Baso % (Auto) (0 - 2 %) 0 Plt Count, EDTA (150 - 400 K/uL) 81 PUBS MCHC (31 - 37 g/dL) 34 Assessment and Plan Problem List 1. Alcohol withdrawal Plan - pt has clear signs of alcohol withdrawal - pt was acutely confused and unable to provide relevent history - pt was taken off of ativan given inability to control his confusiona and agitation - pt was put of precedex and has been sedated since initiation - pts blood pressure has remained stable throughtout this period 2. Hypokalemia Plan - pt has persistenly low potassium since admission - will attempt to replenish with 100 meq will repeat k in the am 3. Hyponatremia Plan - improving -will continue with normal saline infusion
[2016-05-31] VITALS (23 sets, daily range): BP systolic 110–172; BP diastolic 75–111
--- NOTE | 2016-05-31 17:55 | Progress Note ---
Subjective General Patient is much improved compared to the days before. Patient is no longer confused but is anxious and has persistent tremors. Will c/w monitoring and prn ativan injection Constitutional Denies: Fever, Chills, Sweats, Weakness, Malaise, Other. Eyes Denies: Pain, Vision Change, Conjunctival Inflammation, Eyelid Inflammation, Redness, Other. ENT Denies: Ear Pain, Ear Discharge, Nose Pain, Nasal Discharge, Nasal Congestion, Mouth Pain, Mouth Swelling, Throat Pain, Throat Swelling, Other. Respiratory Denies: Cough, Dry, SOB w/exertion, Wheezing, Hemoptysis, Pleuritic Pain, Sputum , Other. Cardiovascular Denies: Chest Pain, Palpitations, Orthopnea, PND, Edema, Light-headedness, Other. Gastrointestinal Denies: Nausea, Vomiting, Abdominal Pain, Diarrhea, Constipation, Melena, Hematochezia, Other. Genitourinary Denies: Dysuria, Frequency, Incontinence, Hematuria, Retention, Other. Musculoskeletal Hand Pain. Denies: Neck Pain, Shoulder Pain, Arm Pain, Back Pain, Leg Pain, Foot Pain, Other. Skin Denies: Rash, Lesions, Jaundice, Bruising, Other. Physical Exam Vital Signs / I&Os Vital Signs Date Time Temp Pulse Resp B/P Pulse O2 O2 Flow FiO2 Ox Delivery Rate 06/01 1455 98.2 80 20 131/100 99 06/01 1100 98.2 64 18 120/82 100 Room Air 0.0 06/01 1043 Room Air 06/01 1000 78 18 123/70 100 Room Air 0.0 06/01 0900 79 18 122/88 100 Room Air 0.0 06/01 0800 77 16 121/89 06/01 0609 97.5 53 18 167/106 99 Room Air 06/01 0509 46 18 179/106 96 Room Air 06/01 0409 45 18 145/88 99 Room Air 06/01 0300 50 18 164/96 99 Room Air 06/01 0200 44 18 164/106 98 Room Air 06/01 0100 48 18 165/100 97 Room Air 06/01 0000 55 18 134/98 100 Room Air 05/31 2300 60 18 126/101 99 Room Air 05/31 2213 98.2 61 18 114/87 97 Room Air 05/31 2113 68 20 112/80 100 Room Air 05/31 2100 Room Air 03/14 2017 78 20 111/79 99 Room Air 05/31 1913 90 20 110/77 100 Room Air I&O 05/31 0800 05/31 1600 06/01 0000 Intake Total 0 1656 562 Output Total 1599 2049 Balance -1600 1656 -1488 General Appearance Alert, Oriented X3, No acute distress HEENT Atraumatic, PERRLA, Moist mucous membranes Lungs Clear to auscultation, Normal air movement Cardiovascular Regular rate and rhythm, Normal S1 and S2 Abdomen Soft, No tenderness Extremities - frequent muscle cramps in the hand Skin No Breakdown, No Significant Lesions LAB Results Laboratory Tests 06/01 06/01 06/01 0539 0600 1332 Chemistry Plasma Sodium (136 - 145 mmol/L) 140 Plasma Potassium (3.5 - 5.1 mmol/L) 4.8 Plasma Chloride (98 - 107 mmol/L) 104 CO2 (Enzymatic) (21 - 32 mmol/L) 29 BUN (7 - 18 mg/dL) 4 Creatinine (0.6 - 1.3 mg/dL) 1.0 Est GFR ( Amer) (mL/min) >60 Est GFR (Non-Af Amer) (mL/min) >60 Glucose (70 - 110 mg/dL) 109 Plasma Calcium (8.5 - 10.1 mg/dL) 9.1 Troponin (0.00 - 1.5 ng/mL) Cancelled <0.05 <0.05 Hematology WBC (4.5 - 11.5 K/uL) 3.8 RBC (4.50 - 5.90 M/uL) 5.09 Hgb (13.5 - 17.5 gm/dL) 16.6 Hct (41.0 - 53.0 %) 49.5 MCV (80 - 100 fL) 97 MCH (26 - 34 pg) 33 RDW (11.6 - 14.8 %) 13.0 Neut % (Auto) (50 - 75 %) 28.8 Lymph % (Auto) (25 - 40 %) 45.9 [place] % (Auto) (3 - 14 %) 16.8 Eos % (Auto) (0 - 4 %) 6.2 Baso % (Auto) (0 - 2 %) 2.3 Plt Count, EDTA (150 - 400 K/uL) 90 PUBS MCHC (31 - 37 g/dL) 34 Assessment and Plan Problem List 1. Alcohol withdrawal Plan - improving - pt is off of precedex drip - still has anxiety and tremors - will c/w prn ativan 2. Hypokalemia Plan - resolved - will obtain daily cmps 3. Hyponatremia Plan - resolved
[2016-05-31] MEDS ORDERED: GABAPENTIN600 MG PO (20:52)
[2016-05-31] MEDS ORDERED: CYCLOBENZAPRINE10 MG PO (20:52)
[2016-05-31] MEDS ORDERED: IBUPROFEN800 MG PO (20:53)
[2016-06-01] VITALS (15 sets, daily range): BP systolic 119–179; BP diastolic 70–106
[2016-06-02 02:08] VITALS: BP 145/98
[2016-06-02 06:19] VITALS: BP 149/97
[2016-06-02 10:30] VITALS: BP 117/95
[2016-06-02] MEDS ORDERED: HYDROCHLOROTH12.5 MG PO (15:23)
[2016-06-02] MEDS ORDERED: IBUPROFEN800 MG PO (15:24)
[2016-06-02] MEDS ORDERED: GABAPENTIN600 MG PO (15:24)
[2016-06-02] MEDS ORDERED: CYCLOBENZAPRINE10 MG PO (15:24)
--- NOTE | 2016-06-02 15:26 | Provider's Discharge Care Plan ---
Problem, Goal, Plan Problem List 1. Alcohol withdrawal Instructions: - avoid alcohol use 2. Hypertension Instructions: Take meds as directed, - follow up with [facility] for stress test referral 3. Back pain Instructions: - take meds as prescribed
--- NOTE | 2016-06-02 15:26 | Provider's Discharge Care Plan ---
Problem, Goal, Plan Problem List 1. Alcohol withdrawal Instructions: - avoid alcohol use 2. Hypertension Instructions: Take meds as directed, - follow up with [facility] for stress test referral 3. Back pain Instructions: - take meds as prescribed
--- NOTE | 2016-06-17 06:14 | Progress Note ---
Late Entry Date/Time Late Entry Date and Time LATE ENTRY This progress note is for the date of 06/01/16 Subjective General Patient seen and examined. Patient is less tremulous than the days prior however the patient is still being weaned off of clonidine. Patient is otherwise stable, will have patient repeat road test to assess for balance difficulties Constitutional Denies: Fever, Chills, Sweats, Weakness, Malaise, Other. Eyes Denies: Pain, Vision Change, Conjunctival Inflammation, Eyelid Inflammation, Redness, Other. Respiratory Denies: Cough, Dry, SOB w/exertion, Wheezing, Hemoptysis, Pleuritic Pain, Sputum , Other. Cardiovascular Denies: Chest Pain, Palpitations, Orthopnea, PND, Edema, Light-headedness, Other. Gastrointestinal Denies: Nausea, Vomiting, Abdominal Pain, Diarrhea, Constipation, Melena, Hematochezia, Other. Genitourinary Denies: Dysuria, Frequency, Incontinence, Hematuria, Retention, Other. Musculoskeletal Denies: Neck Pain, Shoulder Pain, Arm Pain, Back Pain, Hand Pain, Leg Pain, Foot Pain, Other. Skin Denies: Rash, Lesions, Jaundice, Bruising, Other. Neurological Denies: Weakness, Numbness, Incoordination, Change in speech, Confusion, Seizures, Other. Physical Exam General Appearance Alert, Oriented X3, No acute distress HEENT Atraumatic, PERRLA Lungs Clear to auscultation Cardiovascular Regular rate and rhythm, Normal S1 and S2, No murmurs, gallops, rubs Abdomen Soft, No tenderness Extremities No edema, Normal pulses, Strength = upper ext's, Strength = lower ext's Skin No Breakdown, No Significant Lesions Psych/Mental Status Mood normal Assessment and Plan Problem List 1. Alcohol withdrawal Plan Pt is out of alcohol withdrawal completeing clonidine taper will give reference material for out patient treatment 2. Hypertension Plan c.w. clonidine taper restarted home medication
--- NOTE | 2016-06-17 06:23 | Discharge Summary ---
Discharge Summary Report Admit Date 05/29/16 Discharge Date 06/02/16 Admission Diagnosis alcohol withdrawal Discharge Diagnosis alcohol withdrawal Brief History please refer to original H&P performed by dr Gamboa Hospital Course Patient was admitted found to be in acute alcohol withdrawal. Initially patient was treated with PRN ativan, when it did not work and patient was persistently agitated the patient was placed on a precedex drip. Patient did very well on the precedex and was able to remain sedated and seizure free as he went throught withdrawal. Patient came out of withdrawal without any difficulty. Patient will be discharged, he will resume all his home medicaiton. Patient will make a concerted effort to not drink again. Patient will follow up with his pmd at a later date. General Appearance Alert, Oriented X3, No acute distress HEENT PERRLA, Mucous membran moist/pink Lungs Normal air movement Cardiovascular Normal S1, Normal S2 Abdomen Soft, No tenderness Skin No Breakdown, No Significant Lesions Neurological Normal speech, Normal tone, Sensation intact Discharge Instructions/Meds - avoid alcohol consumption - follow up with our clinic for regular health maintenance visits
== END 2016-06-02 19:30 | disposition home or self-care (01) | DRG 249 ==
LOC: ED SRH 23:00 → TRANS SRH 05-29 00:14 → CC SRH 05-29 00:14
PROVIDERS: ADMIT Internal Medicine
DX: R11.2 Nausea with vomiting, unspecified (principal); R10.13 Epigastric pain; E86.9 Volume depletion, unspecified; E87.1 Hypo-osmolality and hyponatremia; E87.6 Hypokalemia; F10.231 Alcohol dependence with withdrawal delirium; D69.6 Thrombocytopenia, unspecified; M54.30 Sciatica, unspecified side; T42.6X6A Underdosing of other antiepileptic and sedative-hypnotic drugs, initial encounter; Z91.120 Patient's intentional underdosing of medication regimen due to financial hardship
CPT/HCPCS: 90004; 90047; 90074; 90098; 90100; 90616; 91643; 92132; 92235; 92710; 92720; 92740; 92760; 92761; 92762; 92763; 92764; 92765; 92766; 92767; 93140; 94060; 95059; 97580

== ENCOUNTER 2016-06-05 23:05 | Emergency (ER) | payer SELFPAY ==
[~2016-06-05 23:05] MED LIST: CYCLOBENZAPRINE10 MG PO; GABAPENTIN600 MG PO; HYDROCHLOROTH12.5 MG PO; IBUPROFEN800 MG PO
--- NOTE | 2016-06-06 04:19 | ED CLINICAL REPORT ---
Clinical Report - Physicians/Mid Levels [facility] [address] [place] [address] 06/05/2016 23:05 Patient: RAIZA OROZCO Time Seen: 00:01; initial patient contact. Arrived- By private vehicle. Historian- patient. HISTORY OF PRESENT ILLNESS Chief Complaint: CHANGED MENTAL STATUS. This started today and is now gone (lasted a few minutes). The patient has been confused and had trouble concentrating. The patient has had alcohol consumption recently. No weakness, numbness or recent fall. He has had difficulty walking. Usually is alert and oriented X3 and usually has normal mobility. Similar symptoms previously: None. Recent medical care: The patient was seen recently at this facility and hospitalized. REVIEW OF SYSTEMS No fever, headache, head injury, dizziness or blurred vision. No abdominal pain, nausea or vomiting. All systems otherwise negative, except as recorded above. PAST HISTORY ( Seizure. Alcoholism. Back Injury. Back Pain.). Medications: Cyclobenzaprine HCl ER Oral 10mg, 3 x daily. Hydrochlorothiazide Oral 12.5 mg, daily. Gabapentin Oral. Allergies: No Known Drug Allergy. SOCIAL HISTORY Current every day smoker. Alcohol use. Patient is a longstanding alcoholic. Under the influence in E.D. History of drug use: marijuana. ADDITIONAL NOTES The nursing notes have been reviewed with agreement regarding the chief complaint, PMH and patient medications and allergies. PHYSICAL EXAM Vital Signs: 06/05/2016 23:14 BP: 120/82. HR: 86. RR: 16. O2 saturation: 98%. Temp: 96.7 F. Pain level now: 8/10. Have been reviewed as normal. Appearance: Alert. No acute distress. Head: Head atraumatic. Eyes: Pupils equal, round and reactive to light. Pupillary exam: Right pupil 7mm, round, dilated and reactive to light directly and consensually and with accommodation. Left pupil: 7mm, round, dilated and reactive to light directly and consensually and with accommodation. No nystagmus. ENT: Normal ENT inspection. Airway intact. Moist mucous membranes. Neck: Normal inspection. CVS: Normal heart rate and rhythm. Heart sounds normal. Respiratory: No respiratory distress. Breath sounds normal. Abdomen: Soft. Mild tenderness in the left side of the abdomen. No guarding or rebound tenderness. No organomegaly. Skin: Normal skin color. No rash. Extremities: No lower extremity edema. Neuro: Alert. Oriented X 3. Mood/affect normal. Speech normal. Cranial nerves normal (as tested). No facial weakness. No cerebellar findings. No motor deficit. No sensory deficit. Reflexes normal. LABS, X-RAYS, AND EKG Laboratory Tests: CBC w Diff: (JUAN ALBERTO: 06/05/2016 23:35) ( [facility] 06/05/2016 23:56) Final results Test Result Flag Units (Reference) WHITE BLOOD COUNT 4.2 L K/uL (4.5-11.5) RED BLOOD COUNT 4.56 M/uL (4.50-5.90) HEMOGLOBIN 14.6 gm/dL (13.5-17.5) HEMATOCRIT 44.4 % (41.0-53.0) MEAN CELL VOLUME 97 fL (80-100) MEAN CORPUSCULAR HGB 32 pg (26-34) MEAN CORPUSCULAR HGB CONC 33 g/dL (31-37) RED CELL DISTRIBUTION WIDTH 12.6 % (11.6-14.8) PLATELET COUNT 189 K/uL (150-400) LYMPH % 50.4 H % (25-40) MONO % 12.2 % (3-14) GRANULOCYTE % 37.4 Ethyl Alcohol: (JUAN ALBERTO: 06/05/2016 23:35) ( MsgRcvd 06/06/2016 00:07) Final results Test Result Flag Units (Reference) ETHYL ALCOHOL 173 H mg/dL (3-10) Ammonia Level: (JUAN ALBERTO: 06/05/2016 23:35) ( Mscvd 06/06/2016 00:07) Final results Test Result Flag Units (Reference) AMMONIA 10 L umol/L (11-32) CMP: (JUAN ALBERTO: 06/05/2016 23:35) ( MsgRcvd 06/06/2016 00:07) Final results Test Result Flag Units (Reference) GLUCOSE 62 L mg/dL (70-110) BUN 2 L mg/dL (7-18) CREATININE 1.0 mg/dL (0.6-1.3) Estimated GFR >60 mL/min Estimated GFR- >60 mL/min Note: Persistent reduction over 3 months in eGFR<60 mL/min/1.73 m2 defines CKD. Patients with eGFR values>=60 mL/min/1.73 m2 may also have CKD if evidence ofpersistent proteinuria. Additional information may be foundat www.[email or web address].org. SODIUM 140 mmol/L (136-145) POTASSIUM 3.5 mmol/L (3.5-5.1) CHLORIDE 103 mmol/L (98-107) CARBON DIOXIDE 28 mmol/L (21-32) CALCIUM 8.5 mg/dL (8.5-10.1) TOTAL PROTEIN 6.2 L g/dL (6.4-8.2) ALBUMIN 3.1 L g/dL (3.3-5.0) BILIRUBIN, TOTAL 0.3 mg/dL (0.0-1.0) ALKALINE PHOSPHATASE 82 U/L (46-116) AST (SGOT) 27 U/L (15-37) ALT (SGPT) 43 U/L (12-78) . PROGRESS AND PROCEDURES Disposition: Discharged home in good and improved condition. Condition: good. CLINICAL IMPRESSION Chronic substance abuse- alcohol with intoxication and anxiety. INSTRUCTIONS No alcohol. Seek medical help to quit drinking. Your Current Medications: CONTINUE TAKING THE FOLLOWING MEDICATIONS: Cyclobenzaprine HCl ER Oral : 10mg 3 x daily. Gabapentin Oral. Hydrochlorothiazide Oral : 12.5 mg daily. Prescription Medications: Valium 5 mg: take 1 orally every 8 hours. Dispense fifteen (15). No refill. Substitution is permissible. Follow-up: Follow up with your doctor in about two days. Call for an appointment. Blood pressure screening was not performed during this visit because the patient has an active diagnosis of hypertension. (Electronically signed by Joe Conde Dr. 06/06/2016 4:59)
--- NOTE | 2016-06-06 04:19 | ED ORDER SUMMARY ---
..... Patient: RAIZA OROZCO OrderSheet [facility] VisitID: [id number] [place] [address] 36y, M Registration Date/Time: 06/05/2016 ORDER SHEET Weight: 64.8 kg (stated) Allergies: No Known Drug Allergy GENERAL ORDERS: CBC w Diff Urgent (23:46 06/05/2016 JRalbinoelli R.N. verbal order read back to Karan Thomas) (23:46 JRomanelli R.N.) CMP Urgent (23:46 06/05/2016 JRomanelli R.N. verbal order read back to Karan Thomas) (23:46 JRomanelli R.N.) Ammonia Level Urgent (23:46 06/05/2016 JRomanelli R.N. verbal order read back to Karan Thomas) (23:46 JRomanelli R.N.) Ethyl Alcohol Urgent (23:47 06/05/2016 JRalbinoelli R.N. verbal order read back to Karan Thomas) (23:49 JRomanelli R.N.) Urine Drug Screen Urgent (23:47 06/05/2016 JRomanelli R.N. verbal order read back to Karan Thomas) (Ack 23:59 IJurca ER Tech1) (3:53 JRomanelli R.N.) Urinalysis Urgent (23:47 06/05/2016 JRomanelli R.N. verbal order read back to Karan Thomas) (Ack 23:59 Amber ER Tech1) (3:53 JRomanelli R.N.) MEDICATION ORDERS: IV FLUIDS: IV Saline Lock (23:46 06/05/2016 Codyelli R.N. verbal order read back to Karan Thomas) (23:49 JRomanelli R.N.) Ativan IV 0.5 mg (HIGH ALERT MEDICATION, NOW) (01:09 06/06/2016 Karan Thomas) (1:16 JRomanelli R.N.) Diazepam IV 5 mg (HIGH ALERT MEDICATION, NOW) (03:50 06/06/2016 Karan Thomas) (4:08 JRomanelli R.N.) ORDER SHEET NOTES: [Electronically signed by Joe Conde Dr. (04:59 06/06/2016)] [Electronically signed by Israel Graf R.N. (05:11 06/06/2016)] [Electronically locked/signed by Israel Graf R.N. (05:06/06/2016)]
--- NOTE | 2016-06-06 04:19 | ED ORDER SUMMARY ---
..... Patient: RAIZA OROZCO OrderSheet [facility] VisitID: [id number] [place] [address] 36y, M Registration Date/Time: 06/05/2016 ORDER SHEET Weight: 64.8 kg (stated) Allergies: No Known Drug Allergy GENERAL ORDERS: CBC w Diff Urgent (23:46 06/05/2016 JRalbinoelli R.N. verbal order read back to Karan Thomas) (23:46 JRomanelli R.N.) CMP Urgent (23:46 06/05/2016 JRomanelli R.N. verbal order read back to Karan Thomas) (23:46 JRomanelli R.N.) Ammonia Level Urgent (23:46 06/05/2016 JRomanelli R.N. verbal order read back to Karan Thomas) (23:46 JRomanelli R.N.) Ethyl Alcohol Urgent (23:47 06/05/2016 JRalbinoelli R.N. verbal order read back to Karan Thomas) (23:49 JRomanelli R.N.) Urine Drug Screen Urgent (23:47 06/05/2016 JRomanelli R.N. verbal order read back to Karan Thomas) (Ack 23:59 IJurca ER Tech1) (3:53 JRomanelli R.N.) Urinalysis Urgent (23:47 06/05/2016 JRomanelli R.N. verbal order read back to Karan Thomas) (Ack 23:59 Amber ER Tech1) (3:53 JRomanelli R.N.) MEDICATION ORDERS: IV FLUIDS: IV Saline Lock (23:46 06/05/2016 Codyelli R.N. verbal order read back to Karan Thomas) (23:49 JRomanelli R.N.) Ativan IV 0.5 mg (HIGH ALERT MEDICATION, NOW) (01:09 06/06/2016 Karan Thomas) (1:16 JRomanelli R.N.) Diazepam IV 5 mg (HIGH ALERT MEDICATION, NOW) (03:50 06/06/2016 Karan Thomas) (4:08 JRomanelli R.N.) ORDER SHEET NOTES: [Electronically signed by Joe Conde Dr. (04:59 06/06/2016)] [Electronically signed by Israel Graf R.N. (05:11 06/06/2016)] [Electronically locked/signed by Israel Graf R.N. (05:06/06/2016)]
--- NOTE | 2016-06-06 04:19 | ED NURSING NOTES ---
Clinical Report - Nurses Located Within [facility] [place] [address] 06/05/2016 23:05 Patient: HARJIT OROZCO TRIAGE Triage time 23:10 Jun 05 2016. Acuity: LEVEL 3. Chief Complaint: ALTERED MENTAL STATUS. Alert. SAM COMA SCORE: [place] Coma Scale: 15- eyes open spontaneously (4); best verbal response- oriented x 4 (5); best motor response- obeys commands (6). --23:28 Israel Graf R.N. 23:14 06/05/16. BP: 120/82. HR: 86. RR: 16. O2 saturation: 98%. Temp: 96.7 F. Pain level now: 8/10. Additional comments: Chest pain. --23:28 Israel Graf R.N. Weight: 64.8 kg stated. Height/Length: 67 inches Per Patient. BMI: 22.4. --23:22 Israel Graf R.N. Medications Gabapentin Oral. --23:24 Israel Graf R.N. Cyclobenzaprine HCl Oral. --23:24 Israel Graf R.N. Allergies No Known Drug Allergy. --23:21 Israel Graf R.N. History Arrived by private vehicle. Historian: spouse, patient and family. Accompanied by spouse. [facility] ( Confusion at dinner tonight associated with the inability to apply syntax to his statements. states that pt is mostly clear mentally now but still having some dysphasia.). This started just prior to arrival. Patient was last known well (about 3 hours ago). No trouble walking. 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 PAST MEDICAL HX: Immunizations: status is unknown. SOCIAL HX: Heavy tobacco smoker (cigarette)- less than 1 pack per day. History of drug use: marijuana. No alcohol use. No infectious disease exposure. ABUSE ASSESSMENT: No report of abuse. FALL RISK ASSESSMENT: Fall risk assessment completed. No fall risk identified. NUTRITIONAL RISK ASSESSMENT: The nutritional risk assessment revealed no deficiencies. FUNCTIONAL ASSESSMENT: Functional assessment: no impairments noted. LEARNING NEEDS ASSESSMENT: The learning needs assessment revealed no barriers. SKIN INTEGRITY ASSESSMENT: Skin integrity risk assessment completed. No skin integrity risk identified. --23:28 Israel Graf R.N. PROBLEMS: Seizure. Alcoholism. Back Injury. Back Pain. --23:23 Israel Graf R.N. Interventions ID band on patient. To treatment room. --23:28 Israel Graf R.N. PHYSICAL ASSESSMENT Ambulatory to room. GENERAL / NEURO / PSYCH: Alert. Oriented X 4. Patient appears well-nourished and neat and clean. RESPIRATORY: Respirations not labored. CVS: Cardiac rhythm: (RRR). GI / : Abdominal tenderness in the right side of the abdomen. SKIN: Skin is warm and dry. Normal skin turgor. --23:29 Israel Graf R.N. NURSING PROGRESS NOTES Patient gowned. Reassurance given to the patient and patient's family. Patient identifiers checked. Call light placed in reach. Side rails up x 1. Bed placed in lowest position. Brakes of bed on. Patient ready for evaluation- chart flagged and ED physician notified. --23:29 Israel Graf R.N. 23:44 06/05/2016 Site #1 started via IV in the right upper arm with an 20g angiocath, with aseptic technique and good blood return; one attempt. Blood drawn: rainbow set. Labeled in the presence of the patient and sent to the lab. --23:44 Harjit Thompson R.N. 01:02 06/06/16. BP: 117/82. HR: 81. RR: 16. O2 saturation: 99%. --01:03 Israel Graf R.N. 01:11 06/06/2016 Ativan (LORazepam) IVP 0.5 mg given over 2 minute(s) via site #1. Allergies verified, confirmed 5 rights and sedative warning given to the patient. IV patency established. IV site checked: no pain, redness, or swelling. IV flushed thoroughly pre- and post-medication administration. IVP given by RN. --01:16 Israel Graf R.N. 02:40 06/06/16. Patient ID band checked for patient name, birthdate and medical record number: patient confirmed. Clean catch urine collected with return of yellow-colored clear urine; odor is normal; sample sent to lab for urinalysis and culture. Specimen labeled in the presence of the patient. --02:50 Israel Graf R.N. 04:03 06/06/2016 Diazepam (Diazepam) IVP 5 mg given over 2 minute(s) via site #1. Allergies verified, confirmed 5 rights and sedative warning given. IV patency established. IV site checked: no pain, redness, or swelling. IV flushed thoroughly pre- and post-medication administration. IVP given by RN. --04:08 Israel Graf R.N. 04:15 06/06/16. BP: 111/72. HR: 91. RR: 16. O2 saturation: 93% on room air. --04:17 Israel Graf R.N. 03:00 06/06/16. BP: 115/84. HR: 91. RR: 18. O2 saturation: 98% on room air. --05:11 Israel Graf R.N. DISPOSITION / DISCHARGE 04:15 06/06/16. BP: 108/75. HR: 99. RR: 22. O2 saturation: 97% on room air. Temp: 98.4 F (oral). Pain level now: 0/10. --05:07 Israel Graf R.N. Departure time: 0430. --05:07 Israel Graf R.N. 04:30. Condition at departure: improved. No learning barriers present. Discharge instructions provided and reviewed with the patient. Reviewed medication(s) side effects information (prescription given to pt). Reviewed referral to family practice for followup. Patient verbalized understanding. Written instructions provided in Malay. The patient was discharged by the physician. He was discharged home and accompanied by carton stenciler. He left the Emergency Department ambulatory and via private vehicle. Brake Operator driving. --05:09 Israel Graf R.N. Locked/Released at 06/06/2016 5:11 by Israel Graf R.N.
--- NOTE | 2016-06-06 04:19 | ED NURSING NOTES ---
Clinical Report - Nurses [facility] [place] [address] 06/05/2016 23:05 Patient: HARJIT OROZCO TRIAGE Triage time 23:10 Jun 05 2016. Acuity: LEVEL 3. Chief Complaint: ALTERED MENTAL STATUS. Alert. SAM COMA SCORE: [place] Coma Scale: 15- eyes open spontaneously (4); best verbal response- oriented x 4 (5); best motor response- obeys commands (6). --23:28 Israel Graf R.N. 23:14 06/05/16. BP: 120/82. HR: 86. RR: 16. O2 saturation: 98%. Temp: 96.7 F. Pain level now: 8/10. Additional comments: Chest pain. --23:28 Israel Graf R.N. Weight: 64.8 kg stated. Height/Length: 67 inches Per Patient. BMI: 22.4. --23:22 Israel Graf R.N. Medications Gabapentin Oral. --23:24 Israel Graf R.N. Cyclobenzaprine HCl Oral. --23:24 Israel Graf R.N. Allergies No Known Drug Allergy. --23:21 Israel Graf R.N. History Arrived by private vehicle. Historian: spouse, patient and family. Accompanied by spouse. Primary physician ([facility]). ( Confusion at dinner tonight associated with the inability to apply syntax to his statements. states that pt is mostly clear mentally now but still having some dysphasia.). This started just prior to arrival. Patient was last known well (about 3 hours ago). No trouble walking. 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 PAST MEDICAL HX: Immunizations: status is unknown. SOCIAL HX: Heavy tobacco smoker (cigarette)- less than 1 pack per day. History of drug use: marijuana. No alcohol use. No infectious disease exposure. ABUSE ASSESSMENT: No report of abuse. FALL RISK ASSESSMENT: Fall risk assessment completed. No fall risk identified. NUTRITIONAL RISK ASSESSMENT: The nutritional risk assessment revealed no deficiencies. FUNCTIONAL ASSESSMENT: Functional assessment: no impairments noted. LEARNING NEEDS ASSESSMENT: The learning needs assessment revealed no barriers. SKIN INTEGRITY ASSESSMENT: Skin integrity risk assessment completed. No skin integrity risk identified. --23:28 Israel Graf R.N. PROBLEMS: Seizure. Alcoholism. Back Injury. Back Pain. --23:23 Israel Graf R.N. Interventions ID band on patient. To treatment room. --23:28 Israel Graf R.N. PHYSICAL ASSESSMENT Ambulatory to room. GENERAL / NEURO / PSYCH: Alert. Oriented X 4. Patient appears well-nourished and neat and clean. RESPIRATORY: Respirations not labored. CVS: Cardiac rhythm: (RRR). GI / : Abdominal tenderness in the right side of the abdomen. SKIN: Skin is warm and dry. Normal skin turgor. --23:29 Israel Graf R.N. NURSING PROGRESS NOTES Patient gowned. Reassurance given to the patient and patient's family. Patient identifiers checked. Call light placed in reach. Side rails up x 1. Bed placed in lowest position. Brakes of bed on. Patient ready for evaluation- chart flagged and ED physician notified. --23:29 Israel Graf R.N. 23:44 06/05/2016 Site #1 started via IV in the right upper arm with an 20g angiocath, with aseptic technique and good blood return; one attempt. Blood drawn: rainbow set. Labeled in the presence of the patient and sent to the lab. --23:44 Harjit Thompson R.N. 01:02 06/06/16. BP: 117/82. HR: 81. RR: 16. O2 saturation: 99%. --01:03 Israel Graf R.N. 01:11 06/06/2016 Ativan (LORazepam) IVP 0.5 mg given over 2 minute(s) via site #1. Allergies verified, confirmed 5 rights and sedative warning given to the patient. IV patency established. IV site checked: no pain, redness, or swelling. IV flushed thoroughly pre- and post-medication administration. IVP given by RN. --01:16 Israel Graf R.N. 02:40 06/06/16. Patient ID band checked for patient name, birthdate and medical record number: patient confirmed. Clean catch urine collected with return of yellow-colored clear urine; odor is normal; sample sent to lab for urinalysis and culture. Specimen labeled in the presence of the patient. --02:50 Israel Graf R.N. 04:03 06/06/2016 Diazepam (Diazepam) IVP 5 mg given over 2 minute(s) via site #1. Allergies verified, confirmed 5 rights and sedative warning given. IV patency established. IV site checked: no pain, redness, or swelling. IV flushed thoroughly pre- and post-medication administration. IVP given by RN. --04:08 Israel Graf R.N. 04:15 06/06/16. BP: 111/72. HR: 91. RR: 16. O2 saturation: 93% on room air. --04:17 Israel Graf R.N. 03:00 06/06/16. BP: 115/84. HR: 91. RR: 18. O2 saturation: 98% on room air. --05:11 Israel Graf R.N. DISPOSITION / DISCHARGE 04:15 06/06/16. BP: 108/75. HR: 99. RR: 22. O2 saturation: 97% on room air. Temp: 98.4 F (oral). Pain level now: 0/10. --05:07 Israel Graf R.N. Departure time: 0430. --05:07 Israel Graf R.N. 04:30. Condition at departure: improved. No learning barriers present. Discharge instructions provided and reviewed with the patient. Reviewed medication(s) side effects information (prescription given to pt). Reviewed referral to family practice for followup. Patient verbalized understanding. Written instructions provided in Khmer. The patient was discharged by the physician. He was discharged home and accompanied by linoleum printer. He left the Emergency Department ambulatory and via private vehicle. Sales Training Manager driving. --05:09 Israel Graf R.N. Locked/Released at 06/06/2016 5:11 by Israel Graf R.N.
--- NOTE | 2016-06-06 05:12 | ED MED RECONCILIATION SUMMARY ---
Patient: RAIZA OROZCO Medication Reconciliation Report [facility] VisitID: [id number] [address] [place] [address] 36y, M Registration Date/Time: 06/05/2016 Weight: 64.8 kg Height/Length: 67 in. BMI: 22.4 ALLERGIES: No Known Drug Allergy The patient's Home Medications are listed below: CONTINUE TAKING THE FOLLOWING MEDICATIONS: Cyclobenzaprine HCl ER Oral 10mg, 3 x daily Gabapentin Oral Hydrochlorothiazide Oral 12.5 mg, daily The source(s) of the original Home Medication information: Not obtained. The following Medications were given to the patient in the Emergency Department: Ativan [IVP] IVP 0.5 mg, administered: 06/06/2016 1:11:00 AM Diazepam [IVP] IVP 5 mg, administered: 06/06/2016 4:03:00 AM The following Medications were prescribed to the patient: Valium 5 mg: take 1 orally every 8 hours. Dispense fifteen (15). No refill. Substitution is permissible. -- Joe Conde Dr.
--- NOTE | 2016-06-06 05:12 | ED DISCHARGE INSTRUCTIONS ---
Patient: RAIZA OROZCO General Instructions [facility] VisitID: [id number] [place] [address] 36y, M Registration Date/Time: 06/05/2016 Chronic substance abuse- alcohol with intoxication and anxiety. INSTRUCTIONS No alcohol. Seek medical help to quit drinking. Your Current Medications: CONTINUE TAKING THE FOLLOWING MEDICATIONS: Cyclobenzaprine HCl ER Oral : 10mg 3 x daily. Gabapentin Oral. Hydrochlorothiazide Oral : 12.5 mg daily. Prescription Medications: Valium 5 mg: take 1 orally every 8 hours. Dispense fifteen (15). No refill. Substitution is permissible. Follow-up: Follow up with your doctor in about two days. Call for an appointment. Blood pressure screening was not performed during this visit because the patient has an active diagnosis of hypertension. ADDITIONAL INFORMATION Alcohol Intoxication Alcohol intoxication occurs when you drink alcohol faster than your liver can remove it from your system. Alcohol intoxication affects your judgment and coordination. Very high blood alcohol levels can cause coma, very slow breathing and even . If you drink alcohol every day, this may gradually cause permanent damage to your liver, brain, heart, pancreas and other organs. Alcohol use during may cause permanent damage to the growing baby. Home Care: Do not drink any more alcohol. DO NOT DRIVE until all effects of the alcohol have worn off. Get lots of rest over the next few days. Drink plenty of water and other non-alcoholic liquids. Try to eat regular meals. If you have been drinking heavily on a daily basis, you may go through alcohol withdrawl. This is also called the shakes or DTs. The usual symptoms last 3 to 4 days and may include nervousness, shakiness, nausea, sweating or sleeplessness. During this time, it is best that you stay with family or friends who can help and support you. You can also admit yourself to a residential detox program. If your symptoms are severe, contact your doctor for medicines to help. Follow Up: If alcohol is causing a problem in your life, these and other organizations can help you: Alcoholics Anonymous offers support through a self-help fellowship. There are no dues or fees. See the Yellow Pages and call for time and place of meetings. www.aa.org [place] offers support to families of alcohol users. 811.132.2399 www.al-anon.org National [place] On Alcoholism And Drug Dependence 247-354-1226 www.ncadd.org There are also inpatient or residential alcohol detox programs. Check the Internet or phonebook Yellow Pages under Drug Abuse & Treatment Centers. Get Prompt Medical Attention if any of the following occur: there) Diazepam Oral tablet What is this medicine? DIAZEPAM (dye AZ e jerod) is a benzodiazepine. It is used to treat anxiety and nervousness. It also can help treat alcohol withdrawal, relax muscles, and treat certain types of seizures. How should I use this medicine? Take this medicine by mouth with a glass of water. Follow the directions on the prescription label. If this medicine upsets your stomach, take it with food or milk. Take your doses at regular intervals. Do not take your medicine more often than directed. If you have been taking this medicine regularly for some time, do not suddenly stop taking it. You must gradually reduce the dose or you may get severe side effects. Ask your doctor or health client care specialist for advice. Even after you stop taking this medicine it can still affect your body for several days. Talk to your retail presentation specialist regarding the use of this medicine in children. Special care may be needed. What side effects may I notice from receiving this medicine? Side effects that you should report to your doctor or health client care specialist as soon as possible: allergic reactions like skin rash, itching or hives, swelling of the face, lips, or tongue angry, confused, depressed, other mood changes breathing problems feeling faint or lightheaded, falls muscle cramps problems with balance, talking, walking restlessness tremors trouble passing urine or change in the amount of urine unusually weak or tired Side effects that usually do not require medical attention (report to your doctor or health client care specialist if they continue or are bothersome): difficulty sleeping, nightmares dizziness, drowsiness, clumsiness, or unsteadiness, a hangover effect headache nausea, vomiting What may interact with this medicine? cimetidine grapefruit juice herbal or dietary supplements like kava kava, melatonin, [place]'s Wort, or valerian medicines for anxiety or sleeping problems, like alprazolam, lorazepam, or triazolam medicines for depression, mental problems or psychiatric disturbances medicines for HIV infection or AIDS prescription pain medicines rifampin, rifapentine, or rifabutin some medicines for seizures like carbamazepine, phenobarbital, phenytoin, or primidone What if I miss a dose? If you miss a dose, take it as soon as you can. If it is almost time for your next dose, take only that dose. Do not take double or extra doses. Where should I keep my medicine? Keep out of the reach of children. This medicine can be abused. Keep your medicine in a safe place to protect it from theft. Do not share this medicine with anyone. Selling or giving away this medicine is dangerous and against the law. Store at room temperature between 15 and 30 degrees C (59 and 86 degrees F). Protect from light. Keep container tightly closed. Throw away any unused medicine after the expiration date. What should I tell my health care provider before I take this medicine? They need to know if you have any of these conditions an alcohol or drug abuse problem bipolar disorder, depression, psychosis or other mental health condition glaucoma kidney or liver disease lung or breathing disease myasthenia gravis Parkinson's disease seizures or a history of seizures suicidal thoughts an unusual or allergic reaction to diazepam, other benzodiazepines, foods, dyes, or preservatives or trying to get breast-feeding What should I watch for while using this medicine? Visit your doctor or health client care specialist for regular checks on your progress. Your body can become dependent on this medicine. Ask your doctor or health client care specialist if you still need to take it. You may get drowsy or dizzy. Do not drive, use machinery, or do anything that needs mental alertness until you know how this medicine affects you. To reduce the risk of dizzy and fainting spells, do not stand or sit up quickly, especially if you are an older patient. Alcohol may increase dizziness and drowsiness. Avoid alcoholic drinks. Do not treat yourself for coughs, colds or allergies without asking your doctor or health client care specialist for advice. Some ingredients can increase possible side effects. You have been given the following additional information: Alcohol Intoxication Diazepam Oral tablet (Electronically signed by Joe Conde Dr. 06/06/2016 4:59)
--- NOTE | 2016-06-06 05:12 | ED DISCHARGE INSTRUCTIONS ---
Patient: RAIZA OROZCO General Instructions [facility] VisitID: [id number] [place] [address] 36y, M Registration Date/Time: 06/05/2016 Chronic substance abuse- alcohol with intoxication and anxiety. INSTRUCTIONS No alcohol. Seek medical help to quit drinking. Your Current Medications: CONTINUE TAKING THE FOLLOWING MEDICATIONS: Cyclobenzaprine HCl ER Oral : 10mg 3 x daily. Gabapentin Oral. Hydrochlorothiazide Oral : 12.5 mg daily. Prescription Medications: Valium 5 mg: take 1 orally every 8 hours. Dispense fifteen (15). No refill. Substitution is permissible. Follow-up: Follow up with your doctor in about two days. Call for an appointment. Blood pressure screening was not performed during this visit because the patient has an active diagnosis of hypertension. ADDITIONAL INFORMATION Alcohol Intoxication Alcohol intoxication occurs when you drink alcohol faster than your liver can remove it from your system. Alcohol intoxication affects your judgment and coordination. Very high blood alcohol levels can cause coma, very slow breathing and even . If you drink alcohol every day, this may gradually cause permanent damage to your liver, brain, heart, pancreas and other organs. Alcohol use during may cause permanent damage to the growing baby. Home Care: Do not drink any more alcohol. DO NOT DRIVE until all effects of the alcohol have worn off. Get lots of rest over the next few days. Drink plenty of water and other non-alcoholic liquids. Try to eat regular meals. If you have been drinking heavily on a daily basis, you may go through alcohol withdrawl. This is also called the shakes or DTs. The usual symptoms last 3 to 4 days and may include nervousness, shakiness, nausea, sweating or sleeplessness. During this time, it is best that you stay with family or friends who can help and support you. You can also admit yourself to a residential detox program. If your symptoms are severe, contact your doctor for medicines to help. Follow Up: If alcohol is causing a problem in your life, these and other organizations can help you: Alcoholics Anonymous offers support through a self-help fellowship. There are no dues or fees. See the Yellow Pages and call for time and place of meetings. www.aa.org [place] offers support to families of alcohol users. 465.361.9896 www.al-anon.org National [place] On Alcoholism And Drug Dependence 996-979-8073 www.ncadd.org There are also inpatient or residential alcohol detox programs. Check the Internet or phonebook Yellow Pages under Drug Abuse & Treatment Centers. Get Prompt Medical Attention if any of the following occur: there) Diazepam Oral tablet What is this medicine? DIAZEPAM (dye [place] e jerod) is a benzodiazepine. It is used to treat anxiety and nervousness. It also can help treat alcohol withdrawal, relax muscles, and treat certain types of seizures. How should I use this medicine? Take this medicine by mouth with a glass of water. Follow the directions on the prescription label. If this medicine upsets your stomach, take it with food or milk. Take your doses at regular intervals. Do not take your medicine more often than directed. If you have been taking this medicine regularly for some time, do not suddenly stop taking it. You must gradually reduce the dose or you may get severe side effects. Ask your doctor or health medicare interviewer for advice. Even after you stop taking this medicine it can still affect your body for several days. Talk to your public relations intern regarding the use of this medicine in children. Special care may be needed. What side effects may I notice from receiving this medicine? Side effects that you should report to your doctor or health medicare interviewer as soon as possible: allergic reactions like skin rash, itching or hives, swelling of the face, lips, or tongue angry, confused, depressed, other mood changes breathing problems feeling faint or lightheaded, falls muscle cramps problems with balance, talking, walking restlessness tremors trouble passing urine or change in the amount of urine unusually weak or tired Side effects that usually do not require medical attention (report to your doctor or health medicare interviewer if they continue or are bothersome): difficulty sleeping, nightmares dizziness, drowsiness, clumsiness, or unsteadiness, a hangover effect headache nausea, vomiting What may interact with this medicine? cimetidine grapefruit juice herbal or dietary supplements like kava kava, melatonin, [place]'s Wort, or valerian medicines for anxiety or sleeping problems, like alprazolam, lorazepam, or triazolam medicines for depression, mental problems or psychiatric disturbances medicines for HIV infection or AIDS prescription pain medicines rifampin, rifapentine, or rifabutin some medicines for seizures like carbamazepine, phenobarbital, phenytoin, or primidone What if I miss a dose? If you miss a dose, take it as soon as you can. If it is almost time for your next dose, take only that dose. Do not take double or extra doses. Where should I keep my medicine? Keep out of the reach of children. This medicine can be abused. Keep your medicine in a safe place to protect it from theft. Do not share this medicine with anyone. Selling or giving away this medicine is dangerous and against the law. Store at room temperature between 15 and 30 degrees C (59 and 86 degrees F). Protect from light. Keep container tightly closed. Throw away any unused medicine after the expiration date. What should I tell my health care provider before I take this medicine? They need to know if you have any of these conditions an alcohol or drug abuse problem bipolar disorder, depression, psychosis or other mental health condition glaucoma kidney or liver disease lung or breathing disease myasthenia gravis Parkinson's disease seizures or a history of seizures suicidal thoughts an unusual or allergic reaction to diazepam, other benzodiazepines, foods, dyes, or preservatives or trying to get breast-feeding What should I watch for while using this medicine? Visit your doctor or health medicare interviewer for regular checks on your progress. Your body can become dependent on this medicine. Ask your doctor or health medicare interviewer if you still need to take it. You may get drowsy or dizzy. Do not drive, use machinery, or do anything that needs mental alertness until you know how this medicine affects you. To reduce the risk of dizzy and fainting spells, do not stand or sit up quickly, especially if you are an older patient. Alcohol may increase dizziness and drowsiness. Avoid alcoholic drinks. Do not treat yourself for coughs, colds or allergies without asking your doctor or health medicare interviewer for advice. Some ingredients can increase possible side effects. You have been given the following additional information: Alcohol Intoxication Diazepam Oral tablet (Electronically signed by Joe Conde Dr. 06/06/2016 4:59)
--- NOTE | 2016-06-06 05:12 | ED MAR SUMMARY ---
..... Medication Administration Record [facility] [address] [place] [address] Patient: RAIZA OROZCO Visit ID: [id number] 36y, M Weight: 64.8 kg Height/Length: 67 in BMI: 22.4 ALLERGIES: No Known Drug Allergy Given 01:11 06/06/2016 Israel Graf RBessieN. Medication Administered: ATIVAN [IVP] (LORAZEPAM), Dose: 0.5 mg IVP over 2 minute(s), Site: #1 right upper arm. Medication Ordered: Ativan IV 0.5 mg (HIGH ALERT MEDICATION, NOW). Given 04:03 06/06/2016 Israel Graf, R.N. Medication Administered: DIAZEPAM [IVP] (DIAZEPAM), Dose: 5 mg IVP over 2 minute(s), Site: #1 right upper arm. Medication Ordered: Diazepam IV 5 mg (HIGH ALERT MEDICATION, NOW).
--- NOTE | 2016-06-06 05:12 | ED MED RECONCILIATION SUMMARY ---
Patient: RAIZA OROZCO Medication Reconciliation Report [facility] VisitID: [id number] [address] [place] [address] 36y, M Registration Date/Time: 06/05/2016 Weight: 64.8 kg Height/Length: 67 in. BMI: 22.4 ALLERGIES: No Known Drug Allergy The patient's Home Medications are listed below: CONTINUE TAKING THE FOLLOWING MEDICATIONS: Cyclobenzaprine HCl ER Oral 10mg, 3 x daily Gabapentin Oral Hydrochlorothiazide Oral 12.5 mg, daily The source(s) of the original Home Medication information: Not obtained. The following Medications were given to the patient in the Emergency Department: Ativan [IVP] IVP 0.5 mg, administered: 06/06/2016 1:11:00 AM Diazepam [IVP] IVP 5 mg, administered: 06/06/2016 4:03:00 AM The following Medications were prescribed to the patient: Valium 5 mg: take 1 orally every 8 hours. Dispense fifteen (15). No refill. Substitution is permissible. -- Joe Conde Dr.
--- NOTE | 2016-06-06 05:12 | ED MAR SUMMARY ---
..... Medication Administration Record [facility] [address] [place] [address] Patient: RAIZA OROZCO Visit ID: [id number] 36y, M Weight: 64.8 kg Height/Length: 67 in BMI: 22.4 ALLERGIES: No Known Drug Allergy Given 01:11 06/06/2016 Israel Graf RBessieN. Medication Administered: ATIVAN [IVP] (LORAZEPAM), Dose: 0.5 mg IVP over 2 minute(s), Site: #1 right upper arm. Medication Ordered: Ativan IV 0.5 mg (HIGH ALERT MEDICATION, NOW). Given 04:03 06/06/2016 Israel Graf, R.N. Medication Administered: DIAZEPAM [IVP] (DIAZEPAM), Dose: 5 mg IVP over 2 minute(s), Site: #1 right upper arm. Medication Ordered: Diazepam IV 5 mg (HIGH ALERT MEDICATION, NOW).
== END 2016-06-06 04:30 | disposition home or self-care (01) ==
LOC: ED SRH 23:05
DX: F10.180 Alcohol abuse with alcohol-induced anxiety disorder (principal); Z86.69 Personal history of other diseases of the nervous system and sense organs; Z79.899 Other long term (current) drug therapy; F17.210 Nicotine dependence, cigarettes, uncomplicated
CPT/HCPCS: 90004; 90100; 91588; 92010; 92760; 92761; 92762; 92763; 92764; 92765; 92766; 92767; 95059

== ENCOUNTER 2016-06-19 01:11 | Emergency (ER) | payer SELFPAY ==
--- NOTE | 2016-06-19 02:27 | ED CLINICAL REPORT ---
Clinical Report - Physicians/Mid Levels [facility] [address] [place] [address] 06/19/2016 1:11 Patient: RAIZA OROZCO Time Seen: 0115. Arrived- By ambulance. Historian- patient and EMS personnel. HISTORY OF PRESENT ILLNESS Chief Complaint: shaking, anxiety, alcohol withdrawal. At its maximum, severity described as moderate. When seen in the E.D., severity described as moderate. Modifying factors. Not worsened by anything. Not relieved by anything. This started today and is still present. No loss of appetite, weight loss, headache, visual disturbance or fatigue. No muscle aches or weakness. Denies sleep problem. No decreased urine output. (PT has a history of intermittent heavy alcohol use, but states his last drink was several days ago. He has been incarcerated for the past several days. Pt c/o chest tightness, worse with deep breath.). Similar symptoms previously: Occasionally. Recent medical care: Not recently seen/assessed. REVIEW OF SYSTEMS No fever, sore throat, sinus drainage, nasal congestion or cough. No difficulty breathing, abdominal pain, vomiting, diarrhea or black stools. No bloody stools, chills, difficulty with urination, skin rash or back pain. No calf pain, headache, blackouts or double vision. The patient has had chest pain (tightness) and nausea. No difficulty with ambulation. All systems otherwise negative, except as recorded above. PAST HISTORY Problems: Substance Abuse. Seizure. Alcoholism. Additional Surgeries: no known surgeries. Medications: Cyclobenzaprine HCl ER Oral 10mg, 3 x daily. Gabapentin Oral. Hydrochlorothiazide Oral 12.5 mg, daily. Allergies: No Known Drug Allergy. SOCIAL HISTORY Smoker- current status unknown. Heavy alcohol use. History of drug use: marijuana. ADDITIONAL NOTES The nursing notes have been reviewed. PHYSICAL EXAM Vital Signs: 06/19/2016 01:13 BP: 172/116. HR: 102. RR: 24. O2 saturation: 100%. Temp: 97.6 F. Pain level now: 12/27. Have been reviewed. Appearance: Alert. Patient in moderate distress. Distress appears due to anxiety. (PT has course tremors and is crying.). Eyes: Pupils equal, round and reactive to light. Eyes normal inspection. ENT: Nose normal. Neck: Normal inspection. Neck supple. CVS: Normal heart rate and rhythm. Heart sounds normal. Pulses normal. Respiratory: No respiratory distress. Moderate left upper and mid- chest wall tenderness. The tenderness is well-localized and reproduces the patient's subjective complaint. Breath sounds normal. Abdomen: No visible injury. Soft and nontender. Back: Normal inspection. No CVA tenderness. Skin: Skin warm. Normal skin color. No rash. Normal skin turgor. Slight diaphoresis. Extremities: Extremities exhibit normal ROM. No lower extremity edema. Neuro: No motor deficit. No sensory deficit. (Grossly oriented.). LABS, X-RAYS, AND EKG Laboratory Tests: CBC w Diff: (JUAN ALBERTO: 06/19/2016 01:20) ( [facility] 06/19/2016 01:40) Final results Test Result Flag Units (Reference) WHITE BLOOD COUNT 6.4 K/uL (4.5-11.5) RED BLOOD COUNT 4.95 M/uL (4.50-5.90) HEMOGLOBIN 16.1 gm/dL (13.5-17.5) HEMATOCRIT 47.1 % (41.0-53.0) MEAN CELL VOLUME 95 fL (80-100) MEAN CORPUSCULAR HGB 33 pg (26-34) MEAN CORPUSCULAR HGB CONC 34 g/dL (31-37) RED CELL DISTRIBUTION WIDTH 13.3 % (11.6-14.8) PLATELET COUNT 193 K/uL (150-400) NEUTROPHIL % 61.5 % (50-75) LYMPH % 27.6 % (25-40) MONO % 7.4 % (3-14) EOSINOPHIL % 3.4 % (0-4) BASOPHIL % 0.1 % (0-2) CMP: (JUAN ALBERTO: 06/19/2016 01:20) ( [facility] 06/19/2016 01:51) Final results Test Result Flag Units (Reference) GLUCOSE 94 mg/dL (70-110) BUN 7 mg/dL (7-18) CREATININE 1.1 mg/dL (0.6-1.3) Estimated GFR >60 mL/min Estimated GFR- >60 mL/min Note: Persistent reduction over 3 months in eGFR<60 mL/min/1.73 m2 defines CKD. Patients with eGFR values>=60 mL/min/1.73 m2 may also have CKD if evidence ofpersistent proteinuria. Additional information may be foundat www.[email or web address].org. SODIUM 147 H mmol/L (136-145) POTASSIUM 3.5 mmol/L (3.5-5.1) CHLORIDE 107 mmol/L (98-107) CARBON DIOXIDE 27 mmol/L (21-32) CALCIUM 10.1 mg/dL (8.5-10.1) TOTAL PROTEIN 7.4 g/dL (6.4-8.2) ALBUMIN 3.9 g/dL (3.3-5.0) BILIRUBIN, TOTAL 1.1 H mg/dL (0.0-1.0) ALKALINE PHOSPHATASE 84 U/L (46-116) AST (SGOT) 27 U/L (15-37) ALT (SGPT) 31 U/L (12-78) . Pulse Oximetry: 06/19/2016 01:13 O2 saturation: 100%. (FIO2 - room air). Interpretation: normal. PROGRESS AND PROCEDURES Course of Care: PT was given Haldol and Ativan, with resolution of his sx. Pt had had these episodes previously, and had reproducible chest pain. Patient counseled in person regarding the patient's stable condition, test results, diagnosis and need for follow-up. Concerns were addressed. Old medical records reviewed. Disposition: Discharged. Condition: stable and improved. CLINICAL IMPRESSION Anxiety reaction with hyperventilation. Tremor. INSTRUCTIONS (Your labs look good. CLEAR TO BOOK.). Warnings: SEDATIVE MEDICATION: You were given sedative medication during your visit. Do not drive or operate dangerous machinery for 6 hours. GENERAL WARNINGS: Return or contact your physician immediately if your condition worsens or changes unexpectedly, if not improving as expected, or if other problems arise. Your Current Medications: CONTINUE TAKING THE FOLLOWING MEDICATIONS: Cyclobenzaprine HCl ER Oral : 10mg 3 x daily. Gabapentin Oral. Hydrochlorothiazide Oral : 12.5 mg daily. Prescription Medications: HCTZ. No refills. (12.5 mg PO BID #60 (sixty)) Follow-up: Follow up with your doctor as needed. Understanding of the discharge instructions verbalized by patient. (Electronically signed by Cami Rolle MD 06/28/2016 12:33)
--- NOTE | 2016-06-19 02:28 | ED ORDER SUMMARY ---
..... Patient: RAIZA OROZCO OrderSheet [facility] VisitID: [id number] [place] [address] 36y, M Registration Date/Time: 06/19/2016 ORDER SHEET Weight: 68.0 kg (stated) Allergies: No Known Drug Allergy GENERAL ORDERS: CBC w Diff Urgent (01:35 06/19/2016 Taylor GARCIA) (Ack 1:41 Duncan) (1:41 JDeElena R.N.) CMP Urgent (:35 06/19/2016 Taylor GARCIA) (Ack 1:41 Duncan) (1:41 JDeElena R.N.) MEDICATION ORDERS: Haldol IM 5 mg (HIGH ALERT MEDICATION, NOW) (02:30 06/19/2016 Taylor GARCIA) (Ack 2:33 JDeElena R.N.) (2:55 JDeElena R.N.) Lopressor PO 25 mg (HIGH ALERT MEDICATION, NOW) (02:57 06/19/2016 Taylor GARCIA) (3:18 JDeElena R.N.) IV FLUIDS: Ativan IV 2 mg (HIGH ALERT MEDICATION, NOW) (01:34 06/19/2016 Taylor GARCIA) (Ack 1:41 JDeElena R.N.) (1:54 JDeElena R.N.) IV NS : initial bolus 1000 mL (1000 mL/hr), then none - (NOW) (:35 06/19/2016 Taylor GARCIA) (Ack 1:41 JDeElena R.N.) (1:55 JDeElena R.N.) ORDER SHEET NOTES: [Electronically signed by Maxim Abraham R.N. (03:21 06/19/2016)] [Electronically signed by Cami Rolle MD (12:33 06/28/2016)] [Electronically locked/signed by Maxim Abraham R.N. (03:21 06/19/2016)]
--- NOTE | 2016-06-19 02:28 | ED ORDER SUMMARY ---
..... Patient: RAIZA OROZCO OrderSheet [facility] VisitID: [id number] [place] [address] 36y, M Registration Date/Time: 06/19/2016 ORDER SHEET Weight: 68.0 kg (stated) Allergies: No Known Drug Allergy GENERAL ORDERS: CBC w Diff Urgent (01:35 06/19/2016 Taylor GARCIA) (Ack 1:41 Duncan) (1:41 JDeElena R.N.) CMP Urgent (:35 06/19/2016 Taylor GARCIA) (Ack 1:41 Duncan) (1:41 JDeElena R.N.) MEDICATION ORDERS: Haldol IM 5 mg (HIGH ALERT MEDICATION, NOW) (02:30 06/19/2016 Taylor GARCIA) (Ack 2:33 JDeElena R.N.) (2:55 JDeElena R.N.) Lopressor PO 25 mg (HIGH ALERT MEDICATION, NOW) (02:57 06/19/2016 Taylor GARCIA) (3:18 JDeElena R.N.) IV FLUIDS: Ativan IV 2 mg (HIGH ALERT MEDICATION, NOW) (01:34 06/19/2016 Taylor GARCIA) (Ack 1:41 JDeElena R.N.) (1:54 JDeElena R.N.) IV NS : initial bolus 1000 mL (1000 mL/hr), then none - (NOW) (:35 06/19/2016 Taylor GARCIA) (Ack 1:41 JDeElena R.N.) (1:55 JDeElena R.N.) ORDER SHEET NOTES: [Electronically signed by Maxim Abraham R.N. (03:21 06/19/2016)] [Electronically signed by Cami Rolle MD (12:33 06/28/2016)] [Electronically locked/signed by Maxim Abraham R.N. (03:21 06/19/2016)]
--- NOTE | 2016-06-19 02:28 | ED NURSING NOTES ---
Clinical Report - Nurses [facility] [address] [place] [address] 06/19/2016 1:11 Patient: HARJIT OROZCO TRIAGE Triage time 01:13. Acuity: LEVEL 2. Chief Complaint: (Shaking). Alert. SEPSIS SCREEN: Sepsis Screen: negative. Negative (no infection suspected/documented). --01:20 Maxim Abraham R.N. 01:13 06/19/16. BP: 172/116 (regular adult cuff) taken on the left arm, via an automated monitor, while lying. HR: 102 (normal rate). RR: 24 (regular, unlabored and normal). O2 saturation: 100% on room air. Temp: 97.6 F (oral). Pain level now: 12/27. --01:20 Maxim Abraham R.N. Weight: 68 kg stated. Height/Length: 67 inches Per Patient. BMI: 23.5. --01:16 Maxim Abraham R.N. Medications Cyclobenzaprine HCl ER Oral 10mg, 3 x daily. Gabapentin Oral. Hydrochlorothiazide Oral 12.5 mg, daily. --01:17 Maxim Abraham R.N. Medication/allergy information source: the patient. --01:20 Maxim Abraham R.N. Allergies No Known Drug Allergy. --01:17 Maxim Abraham R.N. History Arrived by EMS, and in police custody. Historian: patient. Unaccompanied. Primary physician (Dr. Sanchez). This started today. Reports experiencing sweating episodes. He complains of severe, squeezing left-sided and central chest pain, currently severe, associated with nausea and diaphoresis. Denies radiation of chest pain to the left arm, right arm, neck or back. He has had difficulty breathing. No cough. 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 PAST MEDICAL HX: Immunizations: up-to-date. SOCIAL HX: Light tobacco smoker (cigarette)- less than 1/2 a pack per day. Heavy alcohol use. History of drug use: marijuana. (Last use about 3-4 days ago). He has not traveled outside the [place] The patient was not exposed to MRSA. No infectious disease exposure. ABUSE ASSESSMENT: Abuse assessment: The patient was asked "Do you feel safe in your home?" and "Has anyone hurt you or threatened to hurt you?". No report of abuse. SELF HARM ASSESSMENT: A self harm assessment was performed. The patient answered "no" to the question "Do you have thoughts of harming or killing yourself?" and "Have you recently had thoughts about harming or killing others?". FALL RISK ASSESSMENT: Fall risk assessment completed. No fall risk identified. NUTRITIONAL RISK ASSESSMENT: The nutritional risk assessment revealed no deficiencies. FUNCTIONAL ASSESSMENT: Functional assessment: no impairments noted. LEARNING NEEDS ASSESSMENT: The learning needs assessment revealed no barriers. SKIN INTEGRITY ASSESSMENT: Skin integrity risk assessment completed. No skin integrity risk identified. --01:20 Maxim Abraham R.N. PROBLEMS: Substance Abuse. Seizure. Alcoholism. Back Injury. Back Pain. --01:17 Maxim Abraham R.N. Assessment GENERAL / NEURO / PSYCH: Alert. Appears in distress. [place] Coma Scale: 15- eyes open spontaneously (4); best verbal response- oriented x 4 (5); best motor response- obeys commands (6). RESPIRATORY: Respirations not labored. SKIN: Skin is diaphoretic. --01:20 Maxim Abraham R.N. Interventions ID band on patient. To treatment room. --01:20 Maxim Abraham R.N. PHYSICAL ASSESSMENT 01:20. To room via stretcher. GENERAL / NEURO / PSYCH: Alert. Oriented X 4. (Shaking). He appears uncomfortable. RESPIRATORY: Respirations not labored. Chest nontender. Breath sounds within normal limits. CVS: Normal sinus rhythm noted. Pulses: right radial 2+ and left radial 2+. Capillary refill less than 2 seconds. GI / : Abdomen nontender and normal bowel sounds. SKIN: Skin is warm. Skin is diaphoretic. --03:21 Maxim Abraham R.N. NURSING PROGRESS NOTES The initial plan of care for this patient has been created This plan of care was discussed with the patient. technician telecommunication systems, pulse oximeter and NIBP monitor placed on patient; lock technician- Lead II. Patient gowned. Reassurance given to the patient. Two patient identifiers checked. Call light placed in reach. Side rails up x 2. Bed placed in lowest position. Brakes of bed on. Patient ready for evaluation- ED physician notified. --01:20 Maxim Abraham R.N. 01:54 06/19/2016 Site #1 started via IV in the right forearm with an 18g angiocath, with aseptic technique and good blood return; one attempt. Blood drawn: rainbow set. Labeled in the presence of the patient and sent to the lab. Saline lock flushed with 10 mL saline. --:54 Maxim Abraham R.N. 01:54 06/19/2016 Ativan (LORazepam) IVP 2 mg given over 2 minute(s) via site #1. Allergies verified, confirmed 5 rights and sedative warning given to the patient. IV patency established. IV site checked: no pain, redness, or swelling. IV flushed thoroughly pre- and post-medication administration. IVP given by RN. --01:54 Maxim Abraham R.N. 01:55 06/19/2016 Started bag #1 1000 mL IV Fluids IV NS (Saline); at 1000 mL/hr over 1 hour(s) via site #1. Allergies verified and confirmed 5 rights. IV patency established. IV site checked: no pain, redness, or swelling. IV flushed thoroughly pre- and post-medication administration. Completed per protocol. --01:55 Maxim Abraham R.N. Cardiac rhythm: normal sinus rhythm. Visitor at bedside (Police). --01:55 Maxim Abraham R.N. 01:55 06/19/16. BP: 172/107 (regular adult cuff) taken on the left arm, via an automated monitor, while lying. HR: 86 (regular and normal rate). RR: 22 (regular, unlabored and normal). O2 saturation: 100% on room air. --01:55 Maxim Abraham R.N. 02:55 06/19/2016 HALDOL (Haloperidol Lactate) IM 5 mg given. Given in the left ventral gluteus. Allergies verified, confirmed 5 rights and sedative warning given to the patient. (Police made aware of the sedating effects of Haldol.). --02:55 Maxim Abraham R.N. 02:56 06/19/16. BP: 164/101 (regular adult cuff) taken on the left arm, via an automated monitor, while lying. HR: 91 (regular and normal rate). RR: 18 (regular, unlabored and normal). O2 saturation: 99% on room air. --02:56 Maxim Abraham R.N. The patient is calm and resting quietly. Overall patient status is improved- he states feels better. --02:56 Maxim Abraham R.N. 03:05 06/19/2016 Lopressor (Metoprolol Tartrate) PO Tablets 25 mg given. Allergies verified and confirmed 5 rights. --03:18 Maxim Abraham R.N. 03:18 06/19/2016 HALDOL IM Response: no adverse reaction symptoms have improved the patient feels better. --03:18 Maxim Abraham R.N. 03:18 06/19/2016 IV Fluids IV NS Discontinued: bag #1 completed upon discharge. Total amount infused: 1000 mL. IV patency established. IV site checked: no pain, redness, or swelling. IV flushed thoroughly. --03:18 Maxim Abraham R.N. 03:18 06/19/2016 Ativan IVP Response: no adverse reaction symptoms have improved the patient feels better. --03:18 Maxim Abraham R.N. DISPOSITION / DISCHARGE Departure time: 0306. Condition at departure: stable. The goals identified in the patient's plan of care were met. No learning barriers present. Discharge instructions provided and reviewed with the patient (Police). Reviewed medication(s) side effects, precautions, dosing and course information. Prescription(s) given to the patient (Harjit verbalizes importance of taking all prescribed BP meds as directed.). Patient verbalized understanding. Written instructions provided in [place]. The patient was discharged by the physician. He was discharged to police department facility and accompanied by a police escort. He left the Emergency Department ambulatory and via police department vehicle. Driving (police). SAM COMA SCORE: [place] Coma Scale: 15- eyes open spontaneously (4); best verbal response- oriented x 4 (5); best motor response- obeys commands (6). --03:20 Maxim Abraham R.N. 03:18 06/19/16. BP: 159/100. HR: 96 (regular and normal rate). RR: 16 (regular, unlabored and normal). O2 saturation: 100% on room air. Temp: 98.6 F (oral). Pain level now: 5/10. Additional comments: Gave a dose of pt BP meds prior to d/c. Dr. Rolle also writing prescription for refill for BP meds. . --03:20 Maxim Abraham R.N. 03:05 06/19/2016 Site #1 removed upon discharge. Catheter intact. Bandaid applied. --03:20 Maxim Abraham R.N. Locked/Released at 06/19/2016 3:21 by Maxim Abraham R.N.
--- NOTE | 2016-06-28 12:33 | ED MED RECONCILIATION SUMMARY ---
Patient: RAIZA OROZCO Medication Reconciliation Report [facility] VisitID: [id number] [address] [place] [address] 36y, M Registration Date/Time: 06/19/2016 Weight: 68.0 kg Height/Length: 67 in. BMI: 23.5 ALLERGIES: No Known Drug Allergy The patient's Home Medications are listed below: CONTINUE TAKING THE FOLLOWING MEDICATIONS: Cyclobenzaprine HCl ER Oral 10mg, 3 x daily Gabapentin Oral Hydrochlorothiazide Oral 12.5 mg, daily The source(s) of the original Home Medication information: patient The following Medications were given to the patient in the Emergency Department: Ativan [IVP] IVP 2 mg, administered: 06/19/2016 1:54:00 AM IV NS IV Fluids bolus 0, then 1000 mL/hr, administered: 06/19/2016 1:55:00 AM HALDOL [IM] IM 5 mg, administered: 06/19/2016 2:55:00 AM Lopressor [PO] PO 25 mg, administered: 06/19/2016 3:05:00 AM The following Medications were prescribed to the patient: HCTZ. No refills.(12.5 mg PO BID #60 (sixty)) -- Cami Rolle MD
--- NOTE | 2016-06-28 12:33 | ED MAR SUMMARY ---
..... Medication Administration Record [facility] [address] [place] [address] Patient: RAIZA OROZCO Visit ID: [id number] 36y, M Weight: 68.0 kg Height/Length: 67 in BMI: 23.5 ALLERGIES: No Known Drug Allergy Given 01:54 06/19/2016 Maxim Abraham R.N. Medication Administered: ATIVAN [IVP] (LORAZEPAM), Dose: 2 mg IVP over 2 minute(s), Site: #1 right forearm. Medication Ordered: Ativan IV 2 mg (HIGH ALERT MEDICATION, NOW). Start 01:55 06/19/2016 Maxim Abraham R.N., Stop 03:18 06/19/2016 Maxim Abraham R.N. Medication Administered: IV NS (SALINE), Dose: IV Fluids over 1 hour(s), Rate: 1000 mL/hr, Dispensed: 1000 mL bag, Site: #1 right forearm. Medication Ordered: IV NS : initial bolus 1000 mL (1000 mL/hr), then none - (NOW). Given 02:55 06/19/2016 Maxim Abraham R.N. Medication Administered: HALDOL [IM] (HALOPERIDOL LACTATE), Dose: 5 mg IM. Medication Ordered: Haldol IM 5 mg (HIGH ALERT MEDICATION, NOW). Given 03:05 06/19/2016 Maxim Abraham R.N. Medication Administered: LOPRESSOR [PO] (METOPROLOL TARTRATE), Dose: 25 mg Tablets PO. Medication Ordered: Lopressor PO 25 mg (HIGH ALERT MEDICATION, NOW).
--- NOTE | 2016-06-28 12:33 | ED DISCHARGE INSTRUCTIONS ---
Patient: RAIZA OROZCO General Instructions [facility] VisitID: [id number] [place] [address] 36y, M Registration Date/Time: 06/19/2016 Anxiety reaction with hyperventilation. Tremor. INSTRUCTIONS (Your labs look good. CLEAR TO BOOK.). Warnings: SEDATIVE MEDICATION: You were given sedative medication during your visit. Do not drive or operate dangerous machinery for 6 hours. GENERAL WARNINGS: Return or contact your physician immediately if your condition worsens or changes unexpectedly, if not improving as expected, or if other problems arise. Your Current Medications: CONTINUE TAKING THE FOLLOWING MEDICATIONS: Cyclobenzaprine HCl ER Oral : 10mg 3 x daily. Gabapentin Oral. Hydrochlorothiazide Oral : 12.5 mg daily. Prescription Medications: HCTZ. No refills. (12.5 mg PO BID #60 (sixty)) Follow-up: Follow up with your doctor as needed. Understanding of the discharge instructions verbalized by patient. ADDITIONAL INFORMATION Stress Reaction Anxiety is the feeling we all get when we think something bad might happen. It is a normal response to stress and usually causes only a mild reaction. When anxiety becomes more severe, emotions may interfere with daily life. In some cases, you may not even be aware of what it is youre anxious about! During an anxiety reaction, you may feel like you are helpless, nervous, depressed or irritable. Your body may show signs of anxiety in many ways. You may experience dry mouth, shakiness, dizziness, weakness, trouble breathing, chest pressure, headache, nausea, diarrhea, tiredness, inability to sleep or sexual problems. Home Care: 1) Try to locate the sources of stress in your life. They may not be obvious! These may include: -- Daily hassles of life which pile up (traffic jams, missed appointments, car troubles, etc.) -- Major life changes, both good (new baby, job promotion) and bad (loss of job, loss of loved one) -- Overload: feeling that you have too many responsibilities and can't take care of all of them at once -- Feeling helpless, feeling that your problems are beyond what youre able to solve 2) Notice how your body reacts to stress. Learn to listen to your body signals. This will help you take action before the stress becomes severe. 3) When you can, do something about the source of your stress. (Avoid hassles, limit the amount of change that happens in your life at one time and take a break when you feel overloaded). 4) Unfortunately, many stressful situations cannot be avoided. It is necessary to learn HOW TO MANAGE STRESS better. There are many proven methods that will reduce your anxiety. These include simple things like exercise, good nutrition and adequate rest. Also, there are certain techniques that are helpful: relaxation and breathing exercises, visualization, biofeedback and meditation. For more information about this, consult your doctor or go to a local bookstore and review the many books and tapes available on this subject. Follow Up If you feel that your anxiety is not responding to self-help measures, contact your doctor or make an appointment with a counselor. Get Prompt Medical Attention if any of the following occur: -- Your symptoms get worse -- Chest pain or trouble breathing -- Severe headache not relieved by rest and mild pain reliever -- Rapid or irregular heartbeat, fainting You have been given the following additional information: Anxiety Reaction (Electronically signed by Cami Rolle MD 06/28/2016 12:33)
--- NOTE | 2016-06-28 12:33 | ED MED RECONCILIATION SUMMARY ---
Patient: RAIZA OROZCO Medication Reconciliation Report [facility] VisitID: [id number] [address] [place] [address] 36y, M Registration Date/Time: 06/19/2016 Weight: 68.0 kg Height/Length: 67 in. BMI: 23.5 ALLERGIES: No Known Drug Allergy The patient's Home Medications are listed below: CONTINUE TAKING THE FOLLOWING MEDICATIONS: Cyclobenzaprine HCl ER Oral 10mg, 3 x daily Gabapentin Oral Hydrochlorothiazide Oral 12.5 mg, daily The source(s) of the original Home Medication information: patient The following Medications were given to the patient in the Emergency Department: Ativan [IVP] IVP 2 mg, administered: 06/19/2016 1:54:00 AM IV NS IV Fluids bolus 0, then 1000 mL/hr, administered: 06/19/2016 1:55:00 AM HALDOL [IM] IM 5 mg, administered: 06/19/2016 2:55:00 AM Lopressor [PO] PO 25 mg, administered: 06/19/2016 3:05:00 AM The following Medications were prescribed to the patient: HCTZ. No refills.(12.5 mg PO BID #60 (sixty)) -- Cami Rolle MD
--- NOTE | 2016-06-28 12:33 | ED MAR SUMMARY ---
..... Medication Administration Record [address] [place] [address] Patient: RAIZA OROZCO Visit ID: [id number] 36y, M Weight: 68.0 kg Height/Length: 67 in BMI: 23.5 ALLERGIES: No Known Drug Allergy Given 01:54 06/19/2016 Maxim Abraham R.N. Medication Administered: ATIVAN [IVP] (LORAZEPAM), Dose: 2 mg IVP over 2 minute(s), Site: #1 right forearm. Medication Ordered: Ativan IV 2 mg (HIGH ALERT MEDICATION, NOW). Start 01:55 06/19/2016 Maxim Abraham R.N., Stop 03:18 06/19/2016 Maxim Abraham R.N. Medication Administered: IV NS (SALINE), Dose: IV Fluids over 1 hour(s), Rate: 1000 mL/hr, Dispensed: 1000 mL bag, Site: #1 right forearm. Medication Ordered: IV NS : initial bolus 1000 mL (1000 mL/hr), then none - (NOW). Given 02:55 06/19/2016 Maxim Abraham R.N. Medication Administered: HALDOL [IM] (HALOPERIDOL LACTATE), Dose: 5 mg IM. Medication Ordered: Haldol IM 5 mg (HIGH ALERT MEDICATION, NOW). Given 03:05 06/19/2016 Maxim Abraham R.N. Medication Administered: LOPRESSOR [PO] (METOPROLOL TARTRATE), Dose: 25 mg Tablets PO. Medication Ordered: Lopressor PO 25 mg (HIGH ALERT MEDICATION, NOW).
== END 2016-06-19 03:06 ==
LOC: ED SRH 01:11
DX: F41.1 Generalized anxiety disorder (principal); R25.1 Tremor, unspecified; R06.4 Hyperventilation; Z79.899 Other long term (current) drug therapy
CPT/HCPCS: 90100; 95059